=== PATIENT | male | born 1950 | race Caucasian/White ===

== ENCOUNTER 2020-06-22 06:10 | Outpatient (REF) | payer MEDICARE, BC, SELFPAY ==
[2020-06-22 07:41] LABS: Alanine Aminotransferase 18 U/L (0-40); Albumin Level 4.3 g/dL (3.5-5.0); Alkaline Phosphatase 53 U/L (39-117); Anion Gap 10 (12-20); Aspartate Amino Transferase 30 U/L (5-37); Bilirubin Total 1.6 mg/dL (0.0-1.0); Blood Urea Nitrogen 16 mg/dL (9-16); Calcium 9.2 mg/dL (8.4-10.2); Carbon Dioxide 30 mmol/L (22-29); Chloride 104 mmol/L (96-108); Cholesterol 120 mg/dL; Estimated Glomerular Filt Rate > 60; Glucose Fasting 101 mg/dL (60-99); HDL Cholesterol 63 mg/dL; LDL Cholesterol Calculated 46 mg/dl; Potassium 4.7 mmol/l (3.3-5.1); Sodium 139 mmol/L (135-145); Total Protein 6.5 g/dL (6.5-8.0); Triglycerides 55 mg/dL
[2020-06-22 08:00] LABS: Microalbumin Urine < 5.0 mg/L
[2020-06-22 08:01] LABS: TSH reflex Free T4 2.36 mIU/mL (0.32-4.0)
[2020-06-22 09:11] LABS: Estimated Average Glucose 114 mg/dL; Hemoglobin A1c % 5.6 %
== END 2020-06-22 06:11 | disposition home or self-care (01) ==
LOC: HO.LAB 06:10
PROVIDERS: PCP Family Medicine; Visit Provider Family Medicine
DX: I10 Essential (primary) hypertension (principal); R73.01 Impaired fasting glucose; Z00.00 Encounter for general adult medical examination without abnormal findings
CPT/HCPCS: 80053; 80061; 82043; 83036; 84443

== ENCOUNTER 2020-07-03 09:30 | Emergency (ER) | payer MEDICARE, BC, SELFPAY ==
[2020-07-03 09:39] VITALS: BP 155/57; PULSE 52; RESP 16; O2SAT 97; BMI 25.8
--- NOTE | 2020-07-03 10:06 | ED_ITS ---
HPI - Eye Problem General Chief complaint: Eye Problems Stated complaint: l eye flashes black dots Time Seen by Provider: 07/03/20 10:06 Source: patient Mode of arrival: ambulatory Limitations: no limitations History of Present Illness HPI Narrative: 70-year-old male presented after having flash light in the left visual field started since last night progressively worsening since last night to seeing a lot of flash lights in the left eye and floaters in the left eye. Patient had bilateral eye cataract surgery 2 weeks ago. Related Data Allergies Allergy/AdvReac Type Severity Reaction Status Date / Time No Known Allergies Allergy Unverified 06/02/20 14:40 [No Known Allergies*] Review of Systems Review of Systems: Yes all other systems are reviewed and are negative Eyes: Eyes: Reports blurry vision ( Left eye), Reports floaters ( left eye) and Reports seeing flashes ENT: Reports system reviewed and no additional complaints, except as documented [facility] Social History Social History Advance Directives: No Advance Directives Information Provided: No Physical Exam Vital Signs: Vital Signs: Vital Signs Pulse Resp BP Pulse Ox 07/03/20 09:39 52 16 155/57 H 97 Body Mass Index 25.8 Const: General: cooperative and healthy appearing Orientation/consciousness: oriented to person HENMT: Head: Yes normal to inspection Eyes: General: appearance normal, both eyes and all related structures Visual Perrin: normal visual perrin by confrontation Alignment and Position: alignment normal Periorbital: periorbital findings normal Eyelids: Yes eyelids normal Conjunctivae: conjunctivae normal Sclerae: sclerae normal Corneas: corneas normal Pupils: Equal, round and reactive pupils present, Pupils normal by confrontation, Pupil accommodation reflex normal and Other pupil findings ( left eye ultrasound at the bedside seeing no intra orbital flaps.) EOM: EOMs intact bilaterally Direct Ophthalmoscopy: other ( IOP in the left eye is 14 right eye 13) Neck: Neck: Yes normal visual inspection Chest: Chest palpation & inspection: normal inspection of the chest Resp: Effort & Inspection: normal respiratory effort Cardio: Jugular venous distension: no JVD GI: Palpation (GI): nontender Skin: General skin exam: no rashes or lesions noted Neuro: General: oriented to person Cranial nerves: Yes CN's II-XII intact bilaterally and Yes Equal, round and reactive pupils present Extrem: General: Yes normal to inspection and Yes full ROM Course Course Course Narrative: 70-year-old male history of recent bilateral eye cataract surgery, presented with left eye for seeing floaters and flashing lights which is concerning of retinal detachment especially patient had a history of right retinal tear on the right eye many years ago. Patient declined any head trauma to the eye. Will perform bedside ultrasound and will consult with Dr. Contreras. MDM - Eye Problem MDM Narrative Medical decision making narrative: Assessment and plan 70-year-old male with left eye light flashes and floaters, patient has a normal IOP, bedside ultrasound showed no obvious flap intra orbital E, the case discussed with Dr. Contreras over the phone recommended that patient to be seen in his office on Saturday. 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
== END 2020-07-03 10:26 | disposition home or self-care (01) ==
PROVIDERS: Emergency Provider Emergency Medicine; PCP Family Medicine
DX: H33.22 Serous retinal detachment, left eye (principal)
CPT/HCPCS: 99283

== ENCOUNTER 2020-10-03 08:38 | Day surgery (SDC) | payer MEDICARE, BC, SELFPAY ==
[2020-09-27 10:33] VITALS: BMI 26.2
--- NOTE | 2020-09-30 08:44 | P.CONAN_ITS ---
Documented by User: Kimberly Gaytan 09/30/20 08:46 HPI - Anesthesia Eval Consult details Narrative: 70yo M for Colonoscopy PMFSH Past Medical History Medical History Arthritis CAD (coronary artery disease) Diet-controlled type 2 diabetes mellitus Elevated cholesterol History of heartburn HTN (hypertension) Myocardial infarction Surgical History Surgical History History of bilateral cataract extraction History of breast lump/mass excision Hx of colonoscopy Hx of tonsillectomy Social History Social History Do you presently have visiting nurse or other home services: No Smoking Quit Date: years ago Use of substances other than those prescribed or required for medical reasons: No Have you been hit, kicked, punched, or otherwise hurt by someone within the past year? If so, by whom?: No Advance Directives: No Advance Directives Information Provided: No Advance Directives on File: No Recently lost weight without trying: No Narrative Narrative: Per cardiology office visit 02/2020 - pt asymptomatic with daily 4 mile walks at fast pace [employer] Allergies Allergy/AdvReac Type Severity Reaction Status Date / Time No Known Allergies Allergy Verified 10/03/20 09:04 [No Known Allergies*] Home Medications Medication Instructions Recorded Confirmed Type atorvastatin 40 mg tablet 40 mg PO DAILY 07/26/20 09/27/20 History flu vacc (64yr IM 07/26/20 History up)-MF59C(PF) 60 mcg(15 mcgx4)/0.5 mL IM syringe irbesartan 150 mg tablet 150 mg PO DAILY 07/26/20 10/03/20 History Exam Exam Date and Time: September 30, 2020 0844 Height,Weight and Vital Signs: Height 5 ft 10 in Weight 83.007 kg Narrative Narrative: EKG 02/2020: SB @ 43 Assessment and Plan Assessment Anesthesia Assessment: Chart Reviewed Documented by User: Shaw Ford 10/03/20 09:22 [facility] Past Medical History Medical History Arthritis CAD (coronary artery disease) Diet-controlled type 2 diabetes mellitus Elevated cholesterol History of heartburn HTN (hypertension) Myocardial infarction Surgical History Surgical History History of bilateral cataract extraction History of breast lump/mass excision Hx of colonoscopy Hx of tonsillectomy Social History Social History Do you presently have visiting nurse or other home services: No Smoking Quit Date: years ago Use of substances other than those prescribed or required for medical reasons: No Have you been hit, kicked, punched, or otherwise hurt by someone within the past year? If so, by whom?: No Advance Directives: No Advance Directives Information Provided: No Advance Directives on File: No Recently lost weight without trying: No Meds Allergies Allergy/AdvReac Type Severity Reaction Status Date / Time No Known Allergies Allergy Verified 10/03/20 09:04 [No Known Allergies*] Home Medications Medication Instructions Recorded Confirmed Type atorvastatin 40 mg tablet 40 mg PO DAILY 07/26/20 09/27/20 History flu vacc 2019-(64yr IM 07/26/20 History up)-MF59C(PF) 60 mcg(15 mcgx4)/0.5 mL IM syringe irbesartan 150 mg tablet 150 mg PO DAILY 07/26/20 10/03/20 History Exam Airway Mallampati Class: II TM Dist: >3cm Neck ROM: Full Loose/Missing/Broken Teeth: No Heart: rrr+[id number] Lungs: cta b/l Assessment and Plan Assessment Anesthesia Assessment: Anesthesia Plan Discussed, PAT Visit and Chart Reviewed Final Anesthetic Review NPO: Yes ASA Class: II Final Preanesthetic Review: No Changes in Pt Med Stat, Meds/Allgs Chart Reviewed, Consent Obtained/Reviewed and Anes Risks/Benef Reviewed Patient Risk: Low Procedure Risk: Low Assessment/Block/Sedation in SS: Assess/Block/Sedation-SS Anesthetic Plan Anesthetic Plan: MAC: and Agree w/ Assess. and Plan Disposition: Standard PACU
[2020-10-03 09:06] VITALS: BP 117/85; PULSE 74; RESP 16; TEMP 36.2; O2SAT 97
[2020-10-03] MEDS: Lactated Ringers 1,000 ML 100 ML IVCONT (09:11)
--- NOTE | 2020-10-03 10:28 | PM.OP ---
Brief Operative Note Date of Service: 10/03/20 Pre-op diagnosis: Screening, History of tubular adenomas Post-op diagnosis: other (Same, diverticulosis) Procedure: Colonoscopy to the cecum and TI Surgeon: Richie Romano Estimated blood loss (mL): 0 Pathology: none sent Condition: stable Disposition: PACU
[2020-10-03 10:29] VITALS: BP 103/62; PULSE 87; RESP 16; TEMP 36.8; O2SAT 97
[2020-10-03 10:44] VITALS: BP 107/71; PULSE 58; RESP 16; TEMP 36.8; O2SAT 97
--- NOTE | 2020-10-03 10:47 | OP_ITS ---
SURGEON: Richie Romano MD INDICATIONS: The patient presents for evaluation of colorectal cancer screening and personal history of tubular adenoma of the colon. Full consent was obtained from him for this, including risks of bleeding and perforation. PREOPERATIVE DIAGNOSIS: POSTOPERATIVE DIAGNOSIS: PROCEDURE PERFORMED: Colonoscopy to the cecum and terminal ileum. ESTIMATED BLOOD LOSS: COMPLICATIONS: ANESTHESIA: Monitored anesthesia care. ASSISTANTS: SPECIMENS: PREOPERATIVE DIAGNOSES: Colorectal cancer screening and personal history of tubular adenoma of the colon. POSTOPERATIVE DIAGNOSES: Colorectal cancer screening and personal history of tubular adenoma of the colon, mild sigmoid diverticulosis. DESCRIPTION OF PROCEDURE: The patient was placed in the left lateral decubitus position. The digital rectal exam revealed no abnormalities. The Olympus video pediatric colonoscope was entered into the rectum and advanced easily to the cecum. Once in the cecum I did identify normal-appearing cecal pouch, appendiceal orifice, and a normal-appearing ileocecal valve. The terminal ileum was cannulated and appeared normal. The scope was withdrawn back in the colon. The entire cecum and ileocecal valve appeared normal. The scope was slowly withdrawn assessing all mucosal surfaces carefully. Preparation was excellent. I did not visualize any sign of polyps, colitis, nor angiodysplasia. There was a mild amount of sigmoid diverticulosis. In the rectum, scope was retroflexed visualizing normal rectal mucosa and no pathology. The scope was straightened and withdrawn from the patient. He tolerated the procedure well and was returned to the recovery area in stable condition. IMPRESSION: Mild sigmoid diverticulosis. PLAN: Given today's negative exam but previous history of tubular adenoma, I would recommend a followup colonoscopy in 5 years for further screening. He was advised to resume his aspirin today. Richie Romano MD RMW/MODL / [id number]
--- NOTE | 2020-10-03 14:13 | HO.POSTANES ---
Post Anesthesia Evaluation Post Anesthesia Evaluation Vital Signs: Vital Signs Temp Pulse Resp BP Pulse Ox 10/03/20 10:44 98.2 F 58 16 107/71 97 10/03/20 10:29 98.2 F 87 16 103/62 97 10/03/20 09:06 97.1 F 74 16 117/85 97 Anesthesia: Monitored Mental Status: Awake Pain Control: Satisfactory Nausea/Vomiting: None Hydration: Adequate Anesthesia-Related Issues: No Anes. Related Issues
== END 2020-10-03 11:00 | disposition home or self-care (01) ==
PROVIDERS: PCP Family Medicine; Visit Provider Internal Medicine
PROC: 0DJD8ZZ Inspection of Lower Intestinal Tract, Via Natural or Artificial Opening Endoscopic (ICD-10-PCS; CPT 45378; principal; 2020-10-03 09:50)
DX: Z12.11 Encounter for screening for malignant neoplasm of colon (principal); Z86.010 Personal history of colon polyps; K57.30 Diverticulosis of large intestine without perforation or abscess without bleeding; E11.9 Type 2 diabetes mellitus without complications; I25.10 Atherosclerotic heart disease of native coronary artery without angina pectoris; Z95.5 Presence of coronary angioplasty implant and graft; I10 Essential (primary) hypertension; Z79.899 Other long term (current) drug therapy; Z79.82 Long term (current) use of aspirin; Z87.891 Personal history of nicotine dependence
CPT/HCPCS: G0105

== ENCOUNTER → 2021-03-09 09:10 | Outpatient (BNVA) | payer MEDICARE, BC, SELFPAY | PROVIDERS: PCP Family Medicine; Referring Provider Family Medicine; Visit Provider Internal Medicine Cardiovascular Disease | DX: R00.1 Bradycardia, unspecified (principal); I25.10 Atherosclerotic heart disease of native coronary artery without angina pectoris; I10 Essential (primary) hypertension; I21.9 Acute myocardial infarction, unspecified; E11.9 Type 2 diabetes mellitus without complications; E78.00 Pure hypercholesterolemia, unspecified | CPT/HCPCS: 93005; 99212 ==

== ENCOUNTER 2021-07-24 07:07 | Outpatient (REF) | payer MEDICARE, BC, SELFPAY ==
[2021-07-24 12:12] LABS: Alanine Aminotransferase 20 U/L (0-40); Albumin Level 4.2 g/dL (3.5-5.0); Alkaline Phosphatase 64 U/L (39-117); Anion Gap 9 (12-20); Aspartate Amino Transferase 29 U/L (5-37); Bilirubin Total 1.1 mg/dL (0.0-1.0); Blood Urea Nitrogen 21 mg/dL (9-16); Calcium 9.1 mg/dL (8.4-10.2); Carbon Dioxide 30 mmol/L (22-29); Chloride 109 mmol/L (96-108); Cholesterol 106 mg/dL; Estimated Glomerular Filt Rate > 60; Glucose Fasting 122 mg/dL (60-99); HDL Cholesterol 58 mg/dL; LDL Cholesterol Calculated 42 mg/dl; Sodium 143 mmol/L (135-145); Total Protein 6.6 g/dL (6.5-8.0); Triglycerides 33 mg/dL
[2021-07-24 13:05] LABS: Prostate Specific Antigen Scr 0.79 ng/mL (<0.05-4.0); TSH reflex Free T4 2.41 uIU/mL (0.32-4.0)
== END 2021-07-24 07:08 | disposition home or self-care (01) ==
LOC: HO.WFDLDS 07:07
PROVIDERS: Visit Provider Family Medicine
DX: Z00.00 Encounter for general adult medical examination without abnormal findings (principal); Z12.5 Encounter for screening for malignant neoplasm of prostate
CPT/HCPCS: 36415; 80053; 80061; 84153; 84443

== ENCOUNTER → 2022-03-12 08:54 | Outpatient (BNVA) | payer MEDICARE, BC, SELFPAY | PROVIDERS: PCP Family Medicine; Referring Provider Family Medicine; Visit Provider Internal Medicine Cardiovascular Disease | DX: I25.10 Atherosclerotic heart disease of native coronary artery without angina pectoris (principal); I10 Essential (primary) hypertension; R00.1 Bradycardia, unspecified | CPT/HCPCS: 93005; 99212 ==

== ENCOUNTER 2022-09-19 08:50 | Outpatient (REF) | payer MEDICARE, BC, SELFPAY ==
[2022-09-19 11:08] LABS: Alanine Aminotransferase 19 U/L (0-40); Albumin Level 4.3 g/dL (3.5-5.0); Alkaline Phosphatase 59 U/L (39-117); Anion Gap 8 (12-20); Aspartate Amino Transferase 27 U/L (5-37); Bilirubin Total 0.9 mg/dL (0.0-1.0); Blood Urea Nitrogen 23 mg/dL (9-16); Calcium 9.4 mg/dL (8.4-10.2); Carbon Dioxide 32 mmol/L (22-29); Chloride 106 mmol/L (96-108); Cholesterol 123 mg/dL; Estimated Glomerular Filt Rate > 60; Glucose Fasting 118 mg/dL (60-99); HDL Cholesterol 60 mg/dL; LDL Cholesterol Calculated 54 mg/dl; Potassium 4.2 mmol/L (3.3-5.1); Sodium 142 mmol/L (135-145); Total Protein 6.8 g/dL (6.5-8.0); Triglycerides 49 mg/dL
[2022-09-19 11:09] LABS: Appearance Urine Clear; Color Urine Yellow; Glucose Urine UA Negative (Negative); Leukocyte Esterase Urine Negative (Negative); Nitrite Urine Negative (Negative); Specific Gravity - Urine 1.025 (1.005-1.025); Urine Blood Negative (Negative); Urine Ketones Negative (Negative); Urine Protein Negative (Neg-Trace)
[2022-09-19 11:19] LABS: Prostate Specific Antigen Scr 0.96 ng/mL (<0.05-4.0); TSH reflex Free T4 2.37 uIU/mL (0.32-4.0)
[2022-09-19 11:52] LABS: Creatinine Urine 184.58 mg/dL; Microalbum/Creatinine Ratio Ur 5.9 ug/mg cr
== END 2022-09-19 08:51 | disposition home or self-care (01) ==
LOC: HO.WFDLDS 08:50
PROVIDERS: Visit Provider Family Medicine
DX: Z00.00 Encounter for general adult medical examination without abnormal findings (principal); Z12.5 Encounter for screening for malignant neoplasm of prostate; I10 Essential (primary) hypertension
CPT/HCPCS: 36415; 80053; 80061; 81003; 82043; 84153; 84443

== ENCOUNTER → 2023-03-14 09:00 | Outpatient (BNVA) | payer MEDICARE, BC, SELFPAY | PROVIDERS: PCP Family Medicine; Referring Provider Family Medicine; Visit Provider Internal Medicine Cardiovascular Disease | DX: I25.10 Atherosclerotic heart disease of native coronary artery without angina pectoris (principal); I49.1 Atrial premature depolarization | CPT/HCPCS: 93005; 99212 ==

== ENCOUNTER 2023-04-22 08:19 | Outpatient (AMB) | payer MEDICARE, BC, SELFPAY ==
[2023-04-22 08:26] VITALS: BP 98/52; PULSE 44; RESP 13; TEMP 36.2; O2SAT 99; BMI 24.0
--- NOTE | 2023-04-22 08:26 | MHC.PC.OV ---
Vital Signs 04/22/23 08:26 Height 5 ft 10 in Weight 167 lb BMI 24.0 BP 98/52 L Blood Pressure Location Rt brachial Position Sitting Respiration 13 Pulse 44 L Temp 97.1 F Temp Source Temporal Artery Scan Pulse Oximetry (%) 99 Oxygen Delivery Method Room Air Intake Visit Reasons: A1C, HTN (hypertension) Intake Note: Patient is here to follow up with A1C. Patient reports no concerns at this time. Green Material Value Added Assessor Required: No Allergies No Known Allergies [No Known Allergies*] Allergy (Verified 04/22/23 08:32) bee stings Allergy (Intermediate, Uncoded 12/18/22 09:56) swelling Tobacco use date assessed: 09/28/22 Fall risk assessment: 1 Fall in past year Last assessed Fall Risk: 04/22/23 Dental Screening Dental Screen Date: 04/22/23 Did you have a dental visit in the last 12 months?: No Did you have a dental problem in the last 6 months where you did not have access to dental care?: No Was dental information given to patient?: Patient has dentist HPI Hypertension (Cardio) Most Recent Cardiac Tests: No Data to Display [facility] Medical History Arthritis CAD (coronary artery disease) Diet-controlled type 2 diabetes mellitus Elevated cholesterol History of heartburn HTN (hypertension) Myocardial infarction Sinus bradycardia Surgical History History of bilateral cataract extraction History of breast lump/mass excision Hx of colonoscopy Hx of tonsillectomy Stented coronary artery Family History Father CAD (coronary artery disease) Myocardial infarction Diabetes mellitus Mother Diabetes mellitus COPD (chronic obstructive pulmonary disease) Brother Alcoholism Substance abuse Son No problems noted. Son Lyme disease Social History Housing: House Do you presently have visiting nurse or other home services: No Alcohol intake: current Alcohol intake frequency: holidays/special occasions only Patient Tobacco Use Status: Former Tobacco user Tobacco use type: Cigarette e-Cigarette/Vaping Use: Never Used Second Hand Smoke Exposure: No service: No Current occupational status: retired Current occupational exposures/hazards: No Cognitive needs: No Hearing needs: No Vision needs: No Questionnaire Thrive Questionnaire Date Thrive assessed: 09/28/22 GERRI-7 AMB Questionnaire GERRI-7 Date GERRI - 7 assessed: 09/28/22 Source: Developed by Drs. Richie Mead, Rizwana Sifuentes, Stanley Manrique and colleagues, with an educational jocelyn from [employer]. Physical exam (Primary Care) Vital Signs: Last Vital Signs Temp 97.1 F 04/22/23 08:26 Pulse 44 L 04/22/23 08:26 Resp 13 04/22/23 08:26 BP 98/52 L 04/22/23 08:26 Pulse Ox 99 04/22/23 08:26 Oxygen Delivery Method Room Air 04/22/23 08:26 BMI result Body Mass Index 24.0 Tobacco/Smoking Status: Tobacco use Status Tobacco use date assessed 09/28/22 04/22/23 08:33 Patient Tobacco Use Status Former Tobacco user 04/22/23 08:33 Tobacco use type Cigarette 04/22/23 08:33 e-Cigarette/Vaping Use Never Used 04/22/23 08:33 Thrive Assessment: Date of Thrive Assessment Date Thrive assessed 09/28/22 04/22/23 08:33 Results AMB Hemoglobin A1c AMB Hemoglobin A1c 5.9 % Last Edit by Tammi Nava on 04/22/23 08:49 Results Reviewed Results Reviewed: Laboratory Last Values Hgb A1c (Clinic) 5.9 % (4.0-6.0) 04/22/23 08:48 Assessment and Plan Assessment & Plan (1) HTN (hypertension): Code(s): I10 - Essential (primary) hypertension Plan: Blood pressure is a little low today but he has no symptoms such as fatigue or dizziness. Advised he increase his water intake in the mornings He is at goal of less than 130/80 for patient with coronary artery disease Continue current medication regimen (2) Pre-diabetes: Code(s): R73.03 - Prediabetes Plan: A1c 5.9% which is in pre diabetes range and has climbed little from his prior check He continues to work at a diet low in sugars and starches. Continue weight control and exercise Coding Level of Care Code Est Pt Level 3 (54398) Diagnoses HTN (hypertension) I10 Pre-diabetes R73.03
== END 2023-04-22 08:54 | disposition home or self-care (01) ==
PROVIDERS: Visit Provider Family Medicine
DX: I10 Essential (primary) hypertension (principal); R73.03 Prediabetes
CPT/HCPCS: 99213

== ENCOUNTER 2023-07-22 08:13 | Outpatient (AMB) | payer MEDICARE, BC, SELFPAY ==
[2023-07-22 08:29] VITALS: BP 120/64; PULSE 41; RESP 13; TEMP 37.1; O2SAT 99; BMI 25.0
--- NOTE | 2023-07-22 08:29 | MHC.PC.OV ---
Vital Signs 07/22/23 08:29 Height 5 ft 10 in Weight 174 lb BMI 25.0 BP 120/64 Blood Pressure Location Lt brachial Position Sitting Respiration 13 Pulse 41 L Pulse Source Pulse Oximeter Temp 98.7 F Temp Source Oral Pulse Oximetry (%) 99 Oxygen Delivery Method Room Air Intake Visit Reasons: f/u hypertension Intake Note: Patient is here for a hypertension follow up. Patient reports he has his A1C taken every 3 months, will await MD direction for todays visit. Computer Lab Assistant Required: No Accompanied by: Self / Same As Patient Allergies No Known Allergies [No Known Allergies*] Allergy (Verified 07/22/23 08:38) bee stings Allergy (Intermediate, Uncoded 07/22/23 08:38) swelling Tobacco use date assessed: 09/28/22 Fall risk assessment: 1 Fall in past year Last assessed Fall Risk: 07/22/23 Dental Screening Dental Screen Date: 07/22/23 Did you have a dental visit in the last 12 months?: Yes Did you have a dental problem in the last 6 months where you did not have access to dental care?: No Was dental information given to patient?: Patient has dentist HPI f/u hypertension HPI Details 73 y/o male presents to f/u hypertension and pre-diabetes. Blood pressure today 120/64. He is on irbesartan 150mg daily. Last A1c 5.9%. A1c today 07/22/23 is 5.7%. FOR[facility]LY [facility], [facility] Medical History Arthritis CAD (coronary artery disease) Diet-controlled type 2 diabetes mellitus Elevated cholesterol History of heartburn HTN (hypertension) Myocardial infarction Sinus bradycardia Surgical History History of bilateral cataract extraction History of breast lump/mass excision Hx of colonoscopy Hx of tonsillectomy Stented coronary artery Family History Father CAD (coronary artery disease) Myocardial infarction Diabetes mellitus Mother Diabetes mellitus COPD (chronic obstructive pulmonary disease) Brother Alcoholism Substance abuse Son No problems noted. Son Lyme disease Social History Housing: House Do you presently have visiting nurse or other home services: No Alcohol intake: current Alcohol intake frequency: holidays/special occasions only Patient Tobacco Use Status: Former Tobacco user Tobacco use type: Cigarette e-Cigarette/Vaping Use: Never Used Second Hand Smoke Exposure: No service: No Current occupational status: retired Current occupational exposures/hazards: No Cognitive needs: No Hearing needs: No Vision needs: No Questionnaire Thrive Questionnaire Date Thrive assessed: 09/28/22 GERRI-7 AMB Questionnaire GERRI-7 Date GERRI - 7 assessed: 09/28/22 Source: Developed by Drs. Richie Mead, Rizwana Sifuentes, Stanley Manrique and colleagues, with an educational jocelyn from [employer]. Review of Systems Const Denies chills, Denies fatigue, Denies fever(s), Denies headache(s) and Denies weakness ENT Denies dizziness and Denies headache(s) Card Denies dyspnea Resp Denies cough, Denies dyspnea, Denies wheezing and Denies other (shortness of breath) Musc Denies numbness and Denies tingling Neuro Denies dizziness, Denies headache(s), Denies numbness, Denies tingling and Denies weakness Psych Denies anxiety and Denies depression Endo Denies fatigue Aller/Immun Denies wheezing Physical exam (Primary Care) Vital Signs: Last Vital Signs Temp 98.7 F 07/22/23 08:29 Pulse 41 L 07/22/23 08:29 Resp 13 07/22/23 08:29 BP 120/64 07/22/23 08:29 Pulse Ox 99 07/22/23 08:29 Oxygen Delivery Method Room Air 07/22/23 08:29 BMI result Body Mass Index 25.0 Tobacco/Smoking Status: Tobacco use Status Tobacco use date assessed 09/28/22 07/22/23 08:30 Patient Tobacco Use Status Former Tobacco user 07/22/23 08:30 Tobacco use type Cigarette 07/22/23 08:30 e-Cigarette/Vaping Use Never Used 07/22/23 08:30 Thrive Assessment: Date of Thrive Assessment Date Thrive assessed 09/28/22 07/22/23 08:30 Const General: well developed; No acute distress Nutritional Appearance: well nourished Orientation/consciousness: patient oriented x3 HENMT Head: Yes normocephalic and Yes atraumatic Eyes General: appearance normal, both eyes and all related structures Pupils: Equal, round and reactive pupils present EOM: EOMs intact bilaterally Resp Effort & Inspection: normal respiratory effort Neuro General: patient oriented x3 and gait normal Cranial nerves: Yes Equal, round and reactive pupils present Psych Affect: normal affect Assessment and Plan Assessment & Plan (1) Essential hypertension: Code(s): I10 - Essential (primary) hypertension Plan: Blood?pressure?is?well?controlled.??Goal?is?less?than?130/80 Continue?current?medication?regimen Continue?exercise?and?salt/sodium?avoid (2) Pre-diabetes: Code(s): R73.03 - Prediabetes Plan: A1c?improved?from?5.9%?to?5.7%.??Low?pre?diabetes?range Continue?to?work?at?a?diet?low?in?sugars?and?starches Weight?control?and?exercise?advised?as?well (3) Sinus bradycardia: Code(s): R00.1 - Bradycardia, unspecified Plan: History?of?bradycardia.??No?dizziness?or?other?symptoms Has?had?workup?with?Cardiology. Orders: Orders Comprehensive Gardner. Panel Fast Today Z00.00 - Encounter for general adult medical examination without abnormal findings Complete Blood Count Auto Diff Today Z00.00 - Encounter for general adult medical examination without abnormal findings Microalbumin, Random (w Creat) Today I10 - Essential (primary) hypertension Prostate Specific Antigen Scr Today Z12.5 - Encounter for screening for malignant neoplasm of prostate Lipid Panel Today Z00.00 - Encounter for general adult medical examination without abnormal findings UA and rflx microscopic Today Z00.00 - Encounter for general adult medical examination without abnormal findings TSH reflex Free T4 Today Z00.00 - Encounter for general adult medical examination without abnormal findings Coding Level of Care Code Est Pt Level 3 (21037) Diagnoses Essential hypertension I10 Pre-diabetes R73.03 Sinus bradycardia R00.1
== END 2023-07-22 09:17 | disposition home or self-care (01) ==
PROVIDERS: PCP Family Medicine; Visit Provider Family Medicine
DX: I10 Essential (primary) hypertension (principal); R73.03 Prediabetes; R00.1 Bradycardia, unspecified; Z13.9 Encounter for screening, unspecified
CPT/HCPCS: 83036; 99213

== ENCOUNTER 2023-09-13 13:26 | Outpatient (AMB) | payer MEDICARE, BC, SELFPAY ==
[2023-09-13 13:35] VITALS: BP 150/84; PULSE 41; O2SAT 97; BMI 25.4
--- NOTE | 2023-09-13 13:35 | MHC.PC.OV ---
Vital Signs 09/13/23 13:35 09/13/23 13:51 Height 5 ft 10 in Weight 177 lb 2 oz BMI 25.4 BP 150/84 H 142/80 H Blood Pressure Location Lt brachial Lt brachial Position Sitting Pulse 41 L Pulse Source Pulse Oximeter Pulse Oximetry (%) 97 Oxygen Delivery Method Room Air Intake Visit Reasons: hypertension Intake Note: Patient is here to follow up on hypertension today. Allergies No Known Allergies [No Known Allergies*] Allergy (Verified 09/13/23 13:38) bee stings Allergy (Intermediate, Uncoded 09/13/23 13:38) swelling Tobacco use date assessed: 09/13/23 Fall risk assessment: 1 Fall in past year Last assessed Fall Risk: 09/13/23 HPI hypertension HPI Details 73 y/o male presents to f/u hypertension. Blood pressure today 150/84, 41p. He is on irbesartan 150mg daily. Pt notes he took his medications today. He denies any recent salty meals. REPLACED BY [facility] Medical History Arthritis CAD (coronary artery disease) Diet-controlled type 2 diabetes mellitus Elevated cholesterol History of heartburn HTN (hypertension) Myocardial infarction Sinus bradycardia Surgical History History of bilateral cataract extraction History of breast lump/mass excision Hx of colonoscopy Hx of tonsillectomy Stented coronary artery Family History Father CAD (coronary artery disease) Myocardial infarction Diabetes mellitus Mother Diabetes mellitus COPD (chronic obstructive pulmonary disease) Brother Alcoholism Substance abuse Son No problems noted. Son Lyme disease Social History Housing: House Do you presently have visiting nurse or other home services: No Alcohol intake: current Alcohol intake frequency: holidays/special occasions only Patient Tobacco Use Status: Former Tobacco user Tobacco use type: Cigarette e-Cigarette/Vaping Use: Never Used Second Hand Smoke Exposure: No service: No Current occupational status: retired Current occupational exposures/hazards: No Cognitive needs: No Hearing needs: No Vision needs: No Questionnaire Thrive Questionnaire Date Thrive assessed: 09/28/22 GERRI-7 AMB Questionnaire GERRI-7 Date GERRI - 7 assessed: 09/28/22 Source: Developed by Drs. Richie Mead, Rizwana Sifuentes, Stanley Manrique and colleagues, with an educational jocelyn from [employer]. Review of Systems Const Denies chills, Denies fatigue, Denies fever(s), Denies headache(s) and Denies weakness ENT Denies dizziness and Denies headache(s) Card Denies chest pain, Denies lightheadedness, Denies dyspnea and Denies other (Palpitations) Resp Denies cough, Denies dyspnea, Denies wheezing and Denies other ( shortness of breath) Musc Denies numbness and Denies tingling Neuro Denies dizziness, Denies headache(s), Denies numbness, Denies tingling, Denies paresthesias and Denies weakness Psych Denies anxiety and Denies depression Endo Denies fatigue Aller/Immun Denies wheezing Physical exam (Primary Care) Vital Signs: Last Vital Signs Pulse 41 L 09/13/23 13:35 BP 150/84 H 09/13/23 13:35 Pulse Ox 97 09/13/23 13:35 Oxygen Delivery Method Room Air 09/13/23 13:35 BMI result Body Mass Index 25.4 Tobacco/Smoking Status: Tobacco use Status Tobacco use date assessed 09/13/23 09/13/23 13:41 Patient Tobacco Use Status Former Tobacco user 09/13/23 13:41 Tobacco use type Cigarette 09/13/23 13:41 e-Cigarette/Vaping Use Never Used 09/13/23 13:41 Thrive Assessment: Date of Thrive Assessment Date Thrive assessed 09/28/22 09/13/23 13:41 Const General: no acute distress and well developed Nutritional Appearance: well nourished Orientation/consciousness: patient oriented x3 HENMT Head: Yes normocephalic and Yes atraumatic Eyes General: appearance normal, both eyes and all related structures Pupils: Equal, round and reactive pupils present EOM: EOMs intact bilaterally Resp Effort & Inspection: normal respiratory effort Auscultation: clear to auscultation bilaterally Cardio Rate: regular rate Rhythm: regular rhythm Heart sounds: S1 normal heart sound present, S2 normal heart sound present, no gallops, no murmurs and no rubs Neuro General: patient oriented x3 and gait normal Cranial nerves: Yes Equal, round and reactive pupils present Psych Affect: normal affect Assessment and Plan Assessment & Plan (1) Essential hypertension: Code(s): I10 - Essential (primary) hypertension Plan: Blood?pressure?is?too?high?for?patient?with?coronary?artery?disease.??Goal?is?less?than?130/80. He?has?noted?elevated?blood?pressures?at?home?as?well Continue?irbesartan.??Will?add?hydrochlorothiazide Will?follow-up?again?in?a?month (2) CAD (coronary artery disease): Comment: Sees Dr Callahan Code(s): I25.10 - Atherosclerotic heart disease of wiyot coronary artery without angina pectoris Plan: Stable (3) Sinus bradycardia: Code(s): R00.1 - Bradycardia, unspecified Plan: Stable Medications: New hydrochlorothiazide 25 mg PO QAM 30 tabs 1RF 30 days Coding Level of Care Code Est Pt Level 3 (02483) Diagnoses Essential hypertension I10 CAD (coronary artery disease) I25.10 Sinus bradycardia R00.1
[2023-09-13 13:51] VITALS: BP 142/80
== END 2023-09-13 14:02 | disposition home or self-care (01) ==
PROVIDERS: PCP Family Medicine; Visit Provider Family Medicine
DX: I10 Essential (primary) hypertension (principal); I25.10 Atherosclerotic heart disease of native coronary artery without angina pectoris; R00.1 Bradycardia, unspecified
CPT/HCPCS: 99213

== ENCOUNTER 2023-09-28 09:14 | Outpatient (AMB) | payer MEDICARE, BC, SELFPAY ==
--- NOTE | 2023-09-28 10:33 | AM.OFFWIN_ITS ---
Intake Vital Signs 09/28/23 10:34 Height 5 ft 10 in Weight 174 lb BMI 25.0 BP 112/70 Blood Pressure Location Lt brachial Position Sitting Pulse 58 Pulse Source Pulse Oximeter Pulse Oximetry (%) 98 Oxygen Delivery Method Room Air Intake Visit Reasons: EP fluid left eardrum hearing loss Intake Note: Patient here because he believes fluid has gathered up in the left ear which has been bothersome for about 3-4 days. Patient Tobacco Use Status: Former Tobacco user Allergies No Known Allergies [No Known Allergies*] Allergy (Verified 10/02/23 10:54) bee stings Allergy (Intermediate, Uncoded 10/02/23 10:54) swelling Do you need a note to return to daycare/school/sports/work: No HPI EP fluid left eardrum hearing loss HPI Details Patient is a 73-year-old male comes to the walk-in clinic complaining of left ear discomfort for the last few days. He had had a course of cold symptoms recently with slight nasal congestion prior to this. The pain radiates to his left jaw, and he has decreased hearing in the ear. He already has an ENT specialist as he does have a history of ear infections and he plans to call them Saturday. He denies headache or dizziness or vertigo, fever or chills, discharge from the ear, nausea vomiting or diarrhea, myalgias or malaise, or other significant associated symptoms. [facility] Medical History Sinus bradycardia Arthritis History of heartburn Elevated cholesterol CAD (coronary artery disease) Diet-controlled type 2 diabetes mellitus Myocardial infarction HTN (hypertension) Surgical History Stented coronary artery History of breast lump/mass excision Hx of tonsillectomy History of bilateral cataract extraction Hx of colonoscopy Family History Father CAD (coronary artery disease) Myocardial infarction Diabetes mellitus Mother Diabetes mellitus COPD (chronic obstructive pulmonary disease) Brother Alcoholism Substance abuse Son No problems noted. Son Lyme disease Social History Housing: House Do you presently have visiting nurse or other home services: No Alcohol intake: current Alcohol intake frequency: holidays/special occasions only Patient Tobacco Use Status: Former Tobacco user Tobacco use type: Cigarette e-Cigarette/Vaping Use: Never Used Second Hand Smoke Exposure: No service: No Current occupational status: retired Current occupational exposures/hazards: No Cognitive needs: No Hearing needs: No Vision needs: No Review of Systems Const All systems reviewed & are unremarkable except as noted in HPI and below Physical Exam Vital Signs: Last Vital Signs Pulse 58 09/28/23 10:34 BP 112/70 09/28/23 10:34 Pulse Ox 98 09/28/23 10:34 Oxygen Delivery Method Room Air 09/28/23 10:34 BMI result Body Mass Index 25.0 Const General: cooperative, comfortable, no acute distress, alert, awake, Physically active and well groomed; No anxious, diaphoretic, intoxicated appearing, poor hygiene or tired appearing Nutritional Appearance: average body habitus Limitations: no limitations HEENT Head: Yes normal to inspection, Yes normocephalic and Yes atraumatic Ears: hearing grossly normal bilaterally, external ears normal, TM normal on the right and TM abnormal (left) wth effusion, erythematous and with fluid behind the TM; not perforated General nose exam: Normal external nose present, Normal nares present, No nasal polyps present, Normal nasal mucous membranes and turbinates present, Normal septum present and No nasal discharge present Face and sinus: Yes normal facial exam, Yes sinuses nontender and Yes face symmetric Mouth: Normal oral and palatal mucosa present, lip normal and tongue normal Throat: Yes posterior oropharynx normal, No peritonsillar mass, No postnasal drainage, No uvular edema and No cobblestoning Eyes General: appearance normal, both eyes and all related structures Resp Effort & Inspection: normal respiratory effort Skin Other: Good color, warm and dry Psych Appearance: grossly normal Mental Status: mental status grossly normal Speech and movement: Normal speech and movement present Affect: normal affect Attitude: cooperative Thought process: Normal thought process present Insight: Good insight present (Psych) Judgement: Good judgement present (Psych) Assessment & Plan Assessment & Plan (1) Otitis media: Code(s): H66.90 - Otitis media, unspecified, unspecified ear Qualifiers: Chronicity: acute Laterality: left Otitis media type: suppurative Recurrence: non-recurrent Spontaneous tympanic membrane rupture: without spontaneous rupture Qualified Code(s): H66.002 - Acute suppurative otitis media without spontaneous rupture of ear drum, left ear Plan: Patient is a 73-year-old male with acute left otitis media after apparent viral upper respiratory infection. He complains of left ear discomfort that radiates to his left jaw, and decreased hearing in the ear. He already sees ENT, and so I told him that if symptoms do not improve with a course of Augmentin that I prescribed, he should follow up with them next week as planned. Medications: New amoxicillin-pot clavulanate 875-125 mg 1 tab PO BID 14 tabs 0RF Coding Level of Care Code Est Pt Level 3 (29024) Diagnoses Non-recurrent acute suppurative otitis media of left ear without spontaneous rupture of tympanic membrane H66.002 Chronicity: acute Laterality: left Otitis media type: suppurative Recurrence: non-recurrent Spontaneous tympanic membrane rupture: without spontaneous rupture
[2023-09-28 10:34] VITALS: BP 112/70; PULSE 58; O2SAT 98; BMI 25.0
== END 2023-09-28 11:28 | disposition home or self-care (01) ==
PROVIDERS: PCP Family Medicine; Visit Provider Physician Assistant Medical
DX: H66.002 Acute suppurative otitis media without spontaneous rupture of ear drum, left ear (principal)
CPT/HCPCS: 99213

== ENCOUNTER 2023-10-02 10:49 | Outpatient (AMB) | payer MEDICARE, BC, SELFPAY ==
[2023-10-02 10:52] VITALS: BP 120/70; PULSE 52; O2SAT 96; BMI 25.1
--- NOTE | 2023-10-02 10:52 | A.OFFPC_ITS ---
Vital Signs 10/02/23 10:52 Height 5 ft 10 in Weight 175 lb 4 oz BMI 25.1 BP 120/70 Blood Pressure Location Lt brachial Position Sitting Pulse 52 Pulse Source Pulse Oximeter Pulse Oximetry (%) 96 Oxygen Delivery Method Room Air Intake Visit Reasons: crackling in left ear post RSV Intake Note: Patient is is here with crackling in left ear, and was treated with Amoxicillin by Rosetta Morales in the walk in. Still not feeling better, still has pain, and it feels better. Allergies No Known Allergies [No Known Allergies*] Allergy (Verified 10/02/23 10:54) bee stings Allergy (Intermediate, Uncoded 10/02/23 10:54) swelling Tobacco use date assessed: 10/02/23 Fall risk assessment: 1 Fall in past year Last assessed Fall Risk: 10/02/23 HPI crackling in left ear post RSV HPI Details 73 y/o male presents today with complain ts of crackling in L ear post RSV. Pt reports he had been treated with amoxicillin in the walk-in for L otitis media but is still feeling pain/discomfort. Pt does note decreased pain. Blood pressure today 120/70. He is on hydrochlorothiazide 25mg. He is taking irbesartan 75mg daily. [facility] Medical History Sinus bradycardia Arthritis History of heartburn Elevated cholesterol CAD (coronary artery disease) Diet-controlled type 2 diabetes mellitus Myocardial infarction HTN (hypertension) Surgical History Stented coronary artery History of breast lump/mass excision Hx of tonsillectomy History of bilateral cataract extraction Hx of colonoscopy Family History Father CAD (coronary artery disease) Myocardial infarction Diabetes mellitus Mother Diabetes mellitus COPD (chronic obstructive pulmonary disease) Brother Alcoholism Substance abuse Son No problems noted. Son Lyme disease Social History Housing: House Do you presently have visiting nurse or other home services: No Alcohol intake: current Alcohol intake frequency: holidays/special occasions o nly Patient Tobacco Use Status: Former Tobacco user Tobacco use type: Cigarette e-Cigarette/Vaping Use: Never Used Second Hand Smoke Exposure: No service: No Current occupational status: retired Current occupational exposures/hazards: No Cognitive needs: No Hearing needs: No Vision needs: No Questionnaire Thrive Questionnaire Date Thrive assessed: 09/28/22 GERRI-7 AMB Questionnaire GERRI-7 Date GERRI - 7 assessed: 09/28/22 Source: Developed by Drs. Richie Mead, Rizwana Sifuentes, Stanley Manrique and colleagues, with an educational jocelyn from [employer]. Review of Systems Const Denies chills, Denies fatigue, Denies fever(s), Denies headache(s) and Denies weakness ENT Details: L ear pain Denies dizziness and Denies headache(s) Card Denies dyspnea Resp Denies cough, Denies dyspnea, Denies wheezing and Denies other (shortness of breath) Musc Denies numbness and Denies tingling Neuro Denies dizziness, Denies headache(s), Denies numbness, Denies tingling and Denies weakness Psych Denies anxiety and Denies depression Endo Denies fatigue Aller/Immun Denies wheezing Physical exam (Primary Care) Vital Signs: Last Vital Signs Pulse 52 10/02/23 10:52 BP 120/70 10/02/23 10:52 Pulse Ox 96 10/02/23 10:52 Oxygen Delivery Method Room Air 10/02/23 10:52 BMI result Body Mass Index 25.1 Tobacco/Smoking Status: Tobacco use Status Tobacco use date assessed 10/02/23 10/02/23 10:55 Patient Tobacco Use Status Former Tobacco user 10/02/23 10:55 Tobacco use type Cigarette 10/02/23 10:55 e-Cigarette/Vaping Use Never Used 10/02/23 10:55 Thrive Assessment: Date of Thrive Assessment Date Thrive assessed 09/28/22 10/02/23 10:55 Const General: well developed; No acute distress Nutritional Appearance: well nourished Orientation/consciousness: patient oriented x3 HENMT Head: Yes normocephalic and Yes atraumatic Eyes General: appearance normal, both eyes and all related structures Pupils: Equal, round and reactive pupils present EOM: EOMs intact bilaterally Resp Effort & Inspection: normal respiratory effort Neuro General: patient oriented x3 and gait normal Cranial nerves: Yes Equal, round and reactive pupils present Psych Affect: normal affect Assessment and Plan Assessment & Plan (1) Left otitis media: Code(s): H66.92 - Otitis media, unspecified, left ear Plan: Ongoing?left?otitis?media. Pain?is?improving.??Will?extend?Augmentin?x5?more?days Refer?him?back?to?ENT?as ?he?has?significant?hearing?loss?already?and?relies?mostly?on?his?left?ear?for?h earing?which?is?currently?significantly?impaired?from?baseline Continue?Flonase?for?improved?drainage Warm?compresses (2) Discomfort of left ear: Code(s): H92.02 - Otalgia, left ear Plan: As?above,?warm?compresses (3) Essential hypertension: Code(s): I10 - Essential (primary) hypertension Plan: Blo od?pressure?significantly?improved?since?adding?hydrochlorothiazide.??He?is?taki ng?12.5?mg?of?hydrochlorothiazide?daily?as?well?as?his?prescribed?dose?of?irbesa rtan Will?adjust?hydrochlorothiazide?dose?in?his?med?list Orders: Referrals Ear/Nose/Throat Referral H91.90 - Unspecified hearing loss, unspecified ear, H92.02 - Otalgia, left ear Medications: Changed From hydrochlorothiazide 25 mg PO QAM 30 days 30 tabs 1RF To hydrochlorothiazide 12.5 mg (1/2 x 25 mg) PO QAM 30 days 15 tabs 1RF From amoxicillin-pot clavulanate 875-125 mg 1 tab PO BID 14 tabs 0RF To amoxicillin-pot clavulanate 875-125 mg 1 tab PO BID 10 tabs 0RF 5 days Coding Level of Care Code Est Pt Level 3 (83240) Diagnoses Left otitis media H66.92 Discomfort of left ear H92.02 Essential hypertension I10
== END 2023-10-02 11:14 | disposition home or self-care (01) ==
PROVIDERS: PCP Family Medicine; Visit Provider Family Medicine
DX: H66.92 Otitis media, unspecified, left ear (principal); H92.02 Otalgia, left ear; I10 Essential (primary) hypertension
CPT/HCPCS: 99213

== ENCOUNTER 2023-11-28 07:31 | Outpatient (REF) | payer MEDICARE, BC, SELFPAY ==
[2023-11-28 10:56] LABS: MANUAL DIFF FLAG NO
[2023-11-28 11:00] LABS: Appearance Urine Clear; Basophils Percent Auto 0.3 % (0-2); Color Urine Yellow; Eosinophils Absolute Auto 0.1 X10*3/uL (0.0-0.4); Eosinophils Percent Auto 2.4 % (0-4); Glucose Urine UA Negative (Negative); Hematocrit 41.5 % (42.0-52.0); Hemoglobin 14.3 g/dl (14.0-18.0); Imm Gran Abs Auto 0.01 X10*3/uL (0.00-0.03); Imm Gran Pct Auto 0.2 % (0.0-0.4); Leukocyte Esterase Urine Negative (Negative); Lymphocytes Absolute Auto 2.1 X10*3/uL (1.2-4.9); Lymphocytes Percent Auto 36.5 % (20-40); Mean Corpuscular HGB Conc 34.5 g/dl (31.0-36.0); Mean Corpuscular Hemoglobin 31.5 pg (27.0-33.0); Mean Corpuscular Volume 91.4 fL (80.0-98.0); Mean Platelet Volume 10.7 fL (9.4-12.4); Monocytes Absolute Auto 0.5 X10*3/uL (0.1-1.2); Monocytes Percent Auto 9.2 % (2-11); Neutrophils Percent Auto 51.4 % (45-73); Nitrite Urine Negative (Negative); PH 5.5 (5.0-9.0); Platelet Count 150 X10*3/uL (160-400); Red Blood Count 4.54 X10*6/uL (4.60-5.80); Red Cell Distribution Width 13.1 % (11.0-16.0); Specific Gravity - Urine <= 1.005 (1.005-1.025); Urine Blood Negative (Negative); Urine Ketones Negative (Negative); Urine Protein Negative (Neg-Trace); White Blood Count 5.8 X10*3/uL (4.8-10.8)
[2023-11-28 11:40] LABS: Alanine Aminotransferase 22 U/L (0-40); Albumin Level 4.1 g/dL (3.5-5.0); Alkaline Phosphatase 69 U/L (39-117); Anion Gap 10 (12-20); Aspartate Amino Transferase 44 U/L (5-37); Bilirubin Total 1.3 mg/dL (0.0-1.0); Blood Urea Nitrogen 19 mg/dL (9-16); Calcium 9.1 mg/dL (8.4-10.2); Carbon Dioxide 31 mmol/L (22-29); Chloride 101 mmol/L (96-108); Cholesterol 110 mg/dL (<200); Estimated Glomerular Filt Rate > 60; Glucose Fasting 121 mg/dL (60-99); HDL Cholesterol 65 mg/dL (>40); LDL Cholesterol Calculated 39 mg/dL (<100); Sodium 138 mmol/L (135-145); Total Protein 6.8 g/dL (6.5-8.0); Triglycerides 31 mg/dL (<150)
[2023-11-28 11:44] LABS: TSH reflex Free T4 2.15 uIU/mL (0.32-4.0)
[2023-11-28 11:46] LABS: Prostate Specific Antigen Scr 1.45 ng/mL (<0.05-4.0)
[2023-11-28 11:53] LABS: Creatinine Urine 26.18 mg/dL; Microalbumin Urine < 5.0 mg/L
== END 2023-11-28 07:32 | disposition home or self-care (01) ==
LOC: HO.10HDL 07:31
PROVIDERS: Visit Provider Family Medicine
DX: Z00.00 Encounter for general adult medical examination without abnormal findings (principal); Z12.5 Encounter for screening for malignant neoplasm of prostate; I10 Essential (primary) hypertension
CPT/HCPCS: 36415; 80053; 80061; 81003; 82043; 82570; 84153; 84443; 85025

== ENCOUNTER 2023-12-02 08:44 | Outpatient (AMB) | payer MEDICARE, BC, SELFPAY ==
--- NOTE | 2023-12-02 09:09 | MHC.PC.OV ---
Vital Signs 12/02/23 09:10 Height 5 ft 10 in Weight 180 lb BMI 25.8 BP 122/60 Blood Pressure Location Lt brachial Position Sitting Respiration 12 Pulse 46 L Pulse Source Pulse Oximeter Pulse Oximetry (%) 98 Oxygen Delivery Method Room Air Intake Visit Reasons: Extended examf/u labs health maintenance Intake Note: Patient is here for his physical and reports he has no concerns. Patient reports he has hearing aids bilaterally. Patient reports he has been cutting the amlodipine in half. 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 Labs were drawn 11/28/23. Reviewed labs with pt. RBC/Hct mildly low at 4.54 and 41.5%. Plt count mildly low at 150. Elevated fasting glucose of 121, hx of pre-diabetes. A1c today 12/02/23 is 6.1%. AST elevated 44 U/L. Triglycerides 31. TC 110. LDL 39. HDL 65. Blood pressure today 122/60, 46p. He notes he has been breaking his amlodipine in half as he had recorded low blood pressures at home. Pt notes he walks for exercise and keeps himself active. He states he had a colonoscopy a couple years ago with Dr. Romano and had wanted to see him back in 10 years. [facility] Medical History Sinus bradycardia Arthritis History of heartburn Elevated cholesterol CAD (coronary artery disease) Diet-controlled type 2 diabetes mellitus Myocardial infarction HTN (hypertension) Surgical History Stented coronary artery History of breast lump/mass excision Hx of tonsillectomy History of bilateral cataract extraction Hx of colonoscopy Family History Father CAD (coronary artery disease) Myocardial infarction Diabetes mellitus Mother Diabetes mellitus COPD (chronic obstructive pulmonary disease) Brother Alcoholism Substance abuse Son No problems noted. Son Lyme disease Social History (Updated 12/02/23 @ 09:22 by Tammi Nava CMA) Household Members: Spouse Both parents involved: No Caregiver staying overnight: No Housing: House Are you a primary date night caregiver to a significant other at home: No Do you presently have visiting nurse or other home services: No 75 years or older and lives alone: No Alcohol intake: current Alcohol intake frequency: holidays/special occasions only Alcohol type: beer Patient Tobacco Use Status: Former Tobacco user Tobacco use type: Cigarette e-Cigarette/Vaping Use: Never Used Second Hand Smoke Exposure: No service: No Current occupational status: retired Current occupational exposures/hazards: No Sexual orientation: Straight/Heterosexual Gender identity: Male Cognitive needs: No Hearing needs: No Vision needs: No Questionnaire PHQ-9 Over the last 2 weeks, how often have you been bothered by any of the following problems? 1. Little interest or pleasure in doing things: not at all 2. Feeling down, depressed, or hopeless: not at all 3. Trouble falling or staying asleep, or sleeping too much: not at all 4. Feeling tired or having little energy: not at all 5. Poor appetite or overeating: not at all 6. Feeling bad about yourself - or that you are a failure or have let yourself or your family down: not at all 7. Trouble concentrating on things, such as reading the newspaper or watching television: not at all 8. Moving or speaking so slowly that other people could have noticed. Or the opposite - being so fidgety or restless that you have been moving around a lot more than usual: not at all 9. Thoughts that you would be better off or of hurting yourself in some way: not at all Total score: 0 Depression Screening Interpretation: Negative Depression Screening Done: Yes 43757 - PHQ-9 Billing: Yes Source: Developed by Drs. Richie Mead, Rizwana Sifuentes, Stanley Manrique and colleagues, with an educational jocelyn from [employer]. Thrive Questionnaire Date Thrive assessed: 12/02/23 I am a: Patient What is your living situation today?: I have a steady place to live Within the past 12 months, did the food you bought not last and you didn't have the money to get more?: Never true Within the past 12 months, did you worry whether your food would run out before you got money to buy more?: Never true Do you have trouble paying for medicines?: No Do you have trouble getting transportation to medical appointments?: No Do you have trouble paying your heating and electricity bill?: No Do you have trouble taking care of your child, family member or friend?: No Do you have trouble with day-to-day activities such as bathing, preparing meals, shopping, managing finances, etc.?: No Are you currently unemployed and looking for a job?: No Are you interested in more education?: No Please select the resources that you would like help with: None Currently or been in a relationship where the following occur: no concerns reported THRIVE Score: 0 AUDIT C Alcohol Use Questionnaire (AUDIT-C) 1. How often do you have a drink containing alcohol?: Monthly or less 2. How many drinks containing alcohol do you have on a typical day when you are drinking?: 1 or 2 3. How often do you have six or more drinks on one occasion?: Never Total Score: 1 Score Reviewed/Action Taken: Yes GERRI-7 AMB Questionnaire GERRI-7 Date GERRI - 7 assessed: 12/02/23 Feeling nervous, anxious, or on edge: 0 = Not at all Not being able to stop or control worryin = Not at all Worrying too much about different things: 0 = Not at all Trouble relaxin = Not at all Being so restless that it is hard to sit still: 0 = Not at all Becoming easily annoyed or irritable: 0 = Not at all Feeling afraid as if something awful might happen: 0 = Not at all Total GERRI-7 score (0-4 normal; 5-9 mild; 10-14 moderate; 15-21 severe): 0 Source: Developed by Drs. Richie Mead, Rizwana Sifuentes, Stanley Manrique and colleagues, with an educational jocelyn from [employer]. GERRI-7 Assessment Billing GERRI-7 Assessment Tool: GERRI-7 Assessment 86144 Review of Systems Const Denies chills, Denies fatigue, Denies fever(s), Denies headache(s) and Denies weakness Eyes Denies change in vision ENT Denies dizziness, Denies headache(s), Denies hearing loss, Denies nasal congestion, Denies sinus pain, Denies sinus pressure and Denies sore throat Card Denies chest pain, Denies lightheadedness, Denies dyspnea and Denies other (palpitations) Resp Denies cough, Denies dyspnea and Denies wheezing GI Denies abdominal pain, Denies melena, Denies hematochezia, Denies change in bowel habits, Denies dyspepsia and Denies nausea Denies hematuria and Denies dysuria Musc Denies abnormal gait, Denies myalgias, Denies arthralgias, Denies numbness and Denies tingling Skin/Breast Denies rash, Denies unusual bruising and Denies wounds Neuro Denies abnormal gait, Denies dizziness, Denies headache(s), Denies memory loss, Denies numbness, Denies Sensory deficit (Neuro), Denies tingling and Denies weakness Psych Denies anxiety, Denies depression and Denies memory loss Endo Denies cold intolerance, Denies fatigue, Denies heat intolerance, Denies polydipsia and Denies polyuria Wale/Lymph Denies easy bleeding and Denies easy bruising Aller/Immun Denies wheezing Physical exam (Primary Care) Vital Signs: Last Vital Signs Pulse 46 L 12/02/23 09:10 Resp 12 12/02/23 09:10 BP 122/60 12/02/23 09:10 Pulse Ox 98 12/02/23 09:10 Oxygen Delivery Method Room Air 12/02/23 09:10 BMI result Body Mass Index 25.8 Tobacco/Smoking Status: Tobacco use Status Tobacco use date assessed 10/02/23 12/02/23 09:16 Patient Tobacco Use Status Former Tobacco user 12/02/23 09:22 Tobacco use type Cigarette 12/02/23 09:22 e-Cigarette/Vaping Use Never Used 12/02/23 09:22 PHQ-9: PHQ-9 Score PHQ-9: Total score 0 12/02/23 09:26 Depression Screening Interpretation: Negative Thrive Assessment: Date of Thrive Assessment Date Thrive assessed 12/02/23 12/02/23 09:26 Currently or been in a relationship where the following occur: no concerns reported Const General: no acute distress, well developed, alert and awake Nutritional Appearance: well nourished Orientation/consciousness: patient oriented x3 HENMT Head: Yes normocephalic and Yes atraumatic Ears: hearing grossly normal bilaterally and TM's normal bilaterally General nose exam: Normal external nose present and Normal nares present Mouth: Normal oral and palatal mucosa present and moist mucous membranes Teeth and gingiva: dentition normal Throat: Yes posterior oropharynx normal Eyes General: appearance normal, both eyes and all related structures Pupils: Equal, round and reactive pupils present and Pupil accommodation reflex normal EOM: EOMs intact bilaterally Neck Neck: Yes normal visual inspection, Yes no lymphadenopathy and Yes trachea midline Thyroid: Thyroid normal Carotids: no bruits Lymphatic: no lymphadenopathy noted Chest Chest palpation & inspection: normal inspection of the chest Resp Effort & Inspection: normal respiratory effort Auscultation: clear to auscultation bilaterally Cardio Rate: regular rate Rhythm: regular rhythm Heart sounds: S1 normal heart sound present, S2 normal heart sound present, no gallops, no murmurs and no rubs Bruits: no abdominal aortic bruits and no carotid bruits GI Palpation (GI): No Abdominal aortic bruit present, Soft to palpation, nontender, No hepatosplenomegaly present and No Rebound tenderness present Auscultation: normal bowel sounds General: Yes no CVA tenderness Back/Spine/Pelvis Back: no CVA tenderness Cervical Spine: cervical ROM normal and No Cervical spine tenderness Thoracic/Lumbar Spine: thoraco-lumbar ROM normal, No pain with thoraco-lumbar ROM, No thoracic spinal tenderness and No lumbar spinal tenderness Skin Lesions: no lesions Rashes: no rashes Trauma: no lacerations or abrasions Wounds: no wounds Nails: normal Neuro General: patient oriented x3 Cranial nerves: Yes Equal, round and reactive pupils present Cognition (Neuro): normal cognition Gait exam (Neuro): Normal gait present Motor exam (neuro): 5/5 motor strength present throughout Sensory Exam: No Sensory deficit (Neuro) Deep tendon reflexes (DTR's): Right patellar reflex intensity grade: 2+ and Left patellar reflex intensity grade: 2+ Extrem General: Yes normal to inspection and No edema Psych Appearance: grossly normal Affect: normal affect Attitude: cooperative Thought process: Normal thought process present Results AMB Hemoglobin A1c AMB Hemoglobin A1c 6.1 % Last Edit by Tammi Nava CMA on 12/02/23 09:32 Results Reviewed Results Reviewed: Laboratory Last Values Hgb A1c (Clinic) 6.1 % (4.0-6.0) H 12/02/23 09:27 Assessment and Plan Assessment & Plan (1) Hyperlipidemia: Code(s): E78.5 - Hyperlipidemia, unspecified Plan: Well?controlled. Continue?atorvastatin (2) Borderline anemia: Code(s): D64.9 - Anemia, unspecified Plan: Very?slightly?low?hematocrit Will?recheck?this?with?next?blood?draw (3) Essential hypertension: Code(s): I10 - Essential (primary) hypertension Plan: Blood?pressure?is?controlled.??Goal?is?less?than?130/80 Continue?current?medication?regimen (4) CAD (coronary artery disease): Comment: Sees Dr Callahan Code(s): I25.10 - Atherosclerotic heart disease of [place] coronary artery without angina pectoris Plan: Stable Has?follow-up?appointment?with??Jun?in?February (5) Pre-diabetes: Code(s): R73.03 - Prediabetes Plan: A1c?has?climbed?from?5.7-6.1% He?notes?that?he?has?gained?weight?and?was?just?on?a?cruise Encouraged?diet?exercise?and?weight?loss (6) Elevated AST (SGOT): Code(s): R74.01 - Elevation of levels of liver transaminase levels Plan: Mildly?elevated?AST?likely?concurrent?with?his?weight?gain Encouraged?weight?loss Will?repeat?prior?to?next?visit (7) Screening for colon cancer: Code(s): Z12.11 - Encounter for screening for malignant neoplasm of colon Plan: Followed?by? Patient?says?he?had?a?colonoscopy?a?couple?of?years?ago?was?told?to?follow-up?in?10?years.??Will?request?report (8) Screening for prostate cancer: Code(s): Z12.5 - Encounter for screening for malignant neoplasm of prostate Plan: PSA?is?within?normal?limits Will?continue?annual?screening (9) Annual physical exam: Code(s): Z00.00 - Encounter for general adult medical examination without abnormal findings Plan: 73-year-old?male?presents?for?an?extended?exam Encouraged?healthy?diet?with?active?lifestyle?and?plenty?of?exercise Orders: Orders AMB Hemoglobin A1c Today E11.9 - Type 2 diabetes mellitus without complications Complete Blood Count Auto Diff Today D64.9 - Anemia, unspecified, Z00.00 - Encounter for general adult medical examination without abnormal findings Comprehensive [place]. Panel Fast Today R74.01 - Elevation of levels of liver transaminase levels, Z00.00 - Encounter for general adult medical examination without abnormal findings Hemoglobin A1c Today R73.01 - Impaired fasting glucose, R73.03 - Prediabetes Coding Level of Care Code Est Pt Level 4 (07889) Diagnoses Hyperlipidemia E78.5 Borderline anemia D64.9 Essential hypertension I10 CAD (coronary artery disease) I25.10 Pre-diabetes R73.03 Elevated AST (SGOT) R74.01 Screening for colon cancer Z12.11 Screening for prostate cancer Z12.5 Annual physical exam Z00.00 Additional Codes GERRI-7 Assessment Billing - GERRI-7 Assessment Tool: GERRI-7 Assessment [id number] ([id number])
[2023-12-02 09:10] VITALS: BP 122/60; PULSE 46; RESP 12; O2SAT 98; BMI 25.8
== END 2023-12-02 09:53 | disposition home or self-care (01) ==
PROVIDERS: PCP Family Medicine; Visit Provider Family Medicine
DX: E78.5 Hyperlipidemia, unspecified (principal); D64.9 Anemia, unspecified; I10 Essential (primary) hypertension; I25.10 Atherosclerotic heart disease of native coronary artery without angina pectoris; R73.03 Prediabetes; R74.01 Elevation of levels of liver transaminase levels; Z12.11 Encounter for screening for malignant neoplasm of colon; Z12.5 Encounter for screening for malignant neoplasm of prostate; Z00.00 Encounter for general adult medical examination without abnormal findings; E11.9 Type 2 diabetes mellitus without complications
CPT/HCPCS: 83036; 99214

== ENCOUNTER 2024-03-02 08:12 | Outpatient (AMB) | payer MEDICARE, BC, SELFPAY ==
[2024-03-02 08:30] VITALS: BP 122/70; PULSE 43; RESP 14; TEMP 36.5; O2SAT 99; BMI 26.0
--- NOTE | 2024-03-02 08:30 | A.OFFPC_ITS ---
Vital Signs 03/02/24 08:30 Height 5 ft 10 in Weight 181 lb BMI 26.0 BP 122/70 Blood Pressure Location Rt brachial Position Sitting Respiration 14 Pulse 43 L Pulse Source Pulse Oximeter Temp 97.7 F Temp Source Temporal Artery Scan Pulse Oximetry (%) 99 Oxygen Delivery Method Room Air Intake Visit Reasons: f/u hypertension, labs Steel Layout Worker Required: No Accompanied by: Self / Same As Patient Allergies No Known Allergies [No Known Allergies*] Allergy (Verified 03/02/24 08:38) bee stings Allergy (Intermediate, Uncoded 12/02/23 09:14) swelling Medication List - Last Reconciled 03/02/24 by Amado Carrillo MD aspirin (Adult Aspirin Regimen) 81 mg PO DAILY atorvastatin 40 mg PO DAILY epinephrine (EpiPen 2-Bandar) 0.3 mg (0.3 mL) IM Q10M PRN ezetimibe 10 mg PO DAILY fluticasone propionate 50 mcg/actuation (Flonase Allergy Relief) 1 spray intranasal Q12H 30 days hydrochlorothiazide 12.5 mg (1/2 x 25 mg) PO QAM 90 days irbesartan 150 mg PO DAILY 90 days omeprazole 20 mg PO DAILY 90 days sildenafil 100 mg PO DAILY PRN 30 days Tobacco use date assessed: 10/02/23 Fall risk assessment: No Falls in past year Last assessed Fall Risk: 03/02/24 Dental Screening Dental Screen Date: 03/02/24 Did you have a dental visit in the last 12 months?: Yes Did you have a dental problem in the last 6 months where you did not have access to dental care?: No Was dental information given to patient?: Patient has dentist HPI f/u hypertension, labs HPI Details 73 y/o male presents to f/u hypertension , pre-diabetes. A1c climbed to 5.7% to 6.1%. Blood pressure today 122/70. He is on hydrochlorothiazide 12.5mg, irbesartan 150mg daily. Hx of CAD. 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 HPI Comments History of Present Illness Details Documentation assistance for Amado Carrillo MD, was provided by Evelio Kelly,? Cooler Worker on 03/02/2024 at 8:48 AM EST. I, Dr. Carrillo, have read, observed, and verified documentation. [facility] Medical History Sinus bradycardia Arthritis History of heartburn Elevated cholesterol CAD (coronary artery disease) Diet-controlled type 2 diabetes mellitus Myocardial infarction HTN (hypertension) Surgical History Stented coronary artery History of breast lump/mass excision Hx of tonsillectomy History of bilateral cataract extraction Hx of colonoscopy Family History Father CAD (coronary artery disease) Myocardial infarction Diabetes mellitus Mother Diabetes mellitus COPD (chronic obstructive pulmonary disease) Brother Alcoholism Substance abuse Son No problems noted. Son Lyme disease Social History Household Members: Spouse Both parents involved: No Caregiver staying overnight: No Housing: House Are you a primary customer care team coach to a significant other at home: No Do you presently have visiting nurse or other home services: No 75 years or older and lives alone: No Alcohol intake: current Alcohol intake frequency: holidays/special occasions only Alcohol type: beer Patient Tobacco Use Status: Former Tobacco user Tobacco use type: Cigarette e-Cigarette/Vaping Use: Never Used Second Hand Smoke Exposure: No service: No Current occupational status: retired Current occupational exposures/hazards: No Sexual orientation: Straight/Heterosexual Gender identity: Male Cognitive needs: No Hearing needs: Yes Vision needs: No Questionnaire Thrive Questionnaire Date Thrive assessed: 12/02/23 GERRI-7 AMB Questionnaire GERRI-7 Date GERRI - 7 assessed: 12/02/23 Source: Developed by Drs. Richie Mead, Rizwana Sifuentes, Stanley Manrique and colleagues, with an educational jocelyn from [employer]. Review of Systems Const Denies chills, Denies fatigue, Denies fever(s), Denies headache(s) and Denies weakness ENT Denies dizziness and Denies headache(s) Card Denies dyspnea Resp Denies cough, Denies dyspnea, Denies wheezing and Denies other (shortness of breath) Musc Denies numbness and Denies tingling Neuro Denies dizziness, Denies headache(s), Denies numbness, Denies tingling and Denies weakness Psych Denies anxiety and Denies depression Endo Denies fatigue Aller/Immun Denies wheezing Physical exam (Primary Care) Vital Signs: Last Vital Signs Temp 97.7 F 03/02/24 08:30 Pulse 43 L 03/02/24 08:30 Resp 14 03/02/24 08:30 BP 122/70 03/02/24 08:30 Pulse Ox 99 03/02/24 08:30 Oxygen Delivery Method Room Air 03/02/24 08:30 BMI result Body Mass Index 26.0 Tobacco/Smoking Status: Tobacco use Status Tobacco use date assessed 10/02/23 03/02/24 08:33 Patient Tobacco Use Status Former Tobacco user 03/02/24 08:33 Tobacco use type Cigarette 03/02/24 08:33 e-Cigarette/Vaping Use Never Used 03/02/24 08:33 Thrive Assessment: Date of Thrive Assessment Date Thrive assessed 12/02/23 03/02/24 08:33 Const General: well developed; No acute distress Nutritional Appearance: well nourished Orientation/consciousness: patient oriented x3 HENMT Head: Yes normocephalic and Yes atraumatic Eyes General: appearance normal, both eyes and all related structures Pupils: Equal, round and reactive pupils present EOM: EOMs intact bilaterally Resp Effort & Inspection: normal respiratory effort Neuro General: patient oriented x3 and gait normal Cranial nerves: Yes Equal, round and reactive pupils present Psych Affect: normal affect Assessment and Plan Assessment & Plan (1) Essential hypertension: Code(s): I10 - Essential (primary) hypertension Plan: There?is?well?controlled.??Goal?is?less?than?130/80 Continue?current?medications (2) Pre-diabetes: Code(s): R73.03 - Prediabetes Plan: A1c?has?climbed?from?5.7%?to?6.1%;?still?in?pre?diabetes?range Continue?a?diet?lower?in?sugars?and?starches Encouraged?weight?loss?and?exercise (3) CAD (coronary artery disease): Comment: Sees Dr Callahan Code(s): I25.10 - Atherosclerotic heart disease of [place] coronary artery without angina pectoris Plan: Stable He?has?an?appointment?with?his?fire extinguisher repairer?tomorrow (4) Elevated AST (SGOT): Code(s): R74.01 - Elevation of levels of liver transaminase levels Plan: Mildly?elevated?liver?enzymes Encouraged?weight?loss (5) Borderline anemia: Code(s): D64.9 - Anemia, unspecified Plan: Borderline?anemia Labs?are?ordered?and?he?will?get?his?labs?drawn?to?recheck?this?prior?to?upcomin g?telemedicine?appointment?in?about?a?month Coding Level of Care Code Est Pt Level 4 (54397) Diagnoses Essential hypertension I10 Pre-diabetes R73.03 CAD (coronary artery disease) I25.10 Elevated AST (SGOT) R74.01 Borderline anemia D64.9
== END 2024-03-02 08:53 | disposition home or self-care (01) ==
PROVIDERS: PCP Family Medicine; Visit Provider Family Medicine
DX: I10 Essential (primary) hypertension (principal); R73.03 Prediabetes; I25.10 Atherosclerotic heart disease of native coronary artery without angina pectoris; R74.01 Elevation of levels of liver transaminase levels; D64.9 Anemia, unspecified
CPT/HCPCS: 83036; 99214

== ENCOUNTER 2024-03-03 07:34 | Outpatient (REF) | payer MEDICARE, BC, SELFPAY ==
[2024-03-03 07:52] LABS: MANUAL DIFF FLAG NO
[2024-03-03 08:16] LABS: Basophils Percent Auto 0.4 % (0-2); Eosinophils Absolute Auto 0.2 X10*3/uL (0.0-0.4); Eosinophils Percent Auto 3.2 % (0-4); Hematocrit 44.7 % (42.0-52.0); Hemoglobin 15.7 g/dl (14.0-18.0); Imm Gran Abs Auto 0.01 X10*3/uL (0.00-0.03); Imm Gran Pct Auto 0.2 % (0.0-0.4); Lymphocytes Percent Auto 37.2 % (20-40); Mean Corpuscular HGB Conc 35.1 g/dl (31.0-36.0); Mean Corpuscular Volume 91.2 fL (80.0-98.0); Mean Platelet Volume 11.4 fL (9.4-12.4); Monocytes Absolute Auto 0.5 X10*3/uL (0.1-1.2); Monocytes Percent Auto 9.5 % (2-11); Neutrophils Absolute Auto 2.6 x10*3/uL (2.0-8.3); Neutrophils Percent Auto 49.5 % (45-73); Platelet Count 125 X10*3/uL (160-400); Red Cell Distribution Width 12.1 % (11.0-16.0); White Blood Count 5.2 X10*3/uL (4.8-10.8)
[2024-03-03 08:27] LABS: Estimated Average Glucose 123 mg/dL; Hemoglobin A1c % 5.9 % (<6.0)
[2024-03-03 09:09] LABS: Alanine Aminotransferase 17 U/L (0-40); Albumin Level 4.4 g/dL (3.5-5.0); Alkaline Phosphatase 54 U/L (39-117); Anion Gap 12 (12-20); Aspartate Amino Transferase 31 U/L (5-37); Bilirubin Total 1.1 mg/dL (0.0-1.0); Blood Urea Nitrogen 18 mg/dL (9-16); Calcium 9.6 mg/dL (8.4-10.2); Carbon Dioxide 30 mmol/L (22-29); Chloride 104 mmol/L (96-108); Estimated Glomerular Filt Rate > 60; Glucose Fasting 127 mg/dL (60-99); Potassium 4.5 mmol/L (3.3-5.1); Sodium 141 mmol/L (135-145); Total Protein 7.1 g/dL (6.5-8.0)
== END 2024-03-03 07:35 | disposition home or self-care (01) ==
LOC: HO.LAB 07:34
PROVIDERS: PCP Family Medicine; Visit Provider Family Medicine
DX: I25.10 Atherosclerotic heart disease of native coronary artery without angina pectoris (principal); R00.1 Bradycardia, unspecified; I10 Essential (primary) hypertension; Z79.82 Long term (current) use of aspirin; Z79.899 Other long term (current) drug therapy; Z00.00 Encounter for general adult medical examination without abnormal findings; D64.9 Anemia, unspecified; R74.01 Elevation of levels of liver transaminase levels; R73.01 Impaired fasting glucose; R73.03 Prediabetes
CPT/HCPCS: 36415; 80053; 83036; 85025; 99212

== ENCOUNTER 2024-03-03 10:20 | Outpatient (AMB) | payer MEDICARE, BC, SELFPAY ==
--- NOTE | 2024-03-03 10:29 | A.OFFVIS_ITS ---
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 Allergies No Known Allergies [No Known Allergies*] Allergy (Verified 03/02/24 08:38) bee stings Allergy (Intermediate, Uncoded 12/02/23 09:14) swelling Medication List - Last Reconciled 03/03/24 by Bharat Callahan MD aspirin (Adult Aspirin Regimen) 81 mg PO DAILY atorvastatin 40 mg PO DAILY epinephrine (EpiPen 2-Bandar) 0.3 mg (0.3 mL) IM Q10M PRN ezetimibe 10 mg PO DAILY fluticasone propionate 50 mcg/actuation (Flonase Allergy Relief) 1 spray intranasal Q12H 30 days hydrochlorothiazide 12.5 mg (1/2 x 25 mg) PO QAM 90 days irbesartan 150 mg PO DAILY 90 days omeprazole 20 mg PO DAILY 90 days sildenafil 100 mg PO DAILY PRN 30 days HPI Comments Details: Carson comes for follow-up. He has been doing well and continues to play 18 hole golf without any limitations. Denies any exertional chest pain or shortness of breath. Takes all his medications. Denies any heart failure symptoms. No prolonged palpitations, lightheadedness, syncope. Last LDL well optimized at 39 mg/dL. [facility] Medical History Sinus bradycardia Arthritis History of heartburn Elevated cholesterol CAD (coronary artery disease) Diet-controlled type 2 diabetes mellitus Myocardial infarction HTN (hypertension) Surgical History Stented coronary artery History of breast lump/mass excision Hx of tonsillectomy History of bilateral cataract extraction Hx of colonoscopy Family History Father CAD (coronary artery disease) Myocardial infarction Diabetes mellitus Mother Diabetes mellitus COPD (chronic obstructive pulmonary disease) Brother Alcoholism Substance abuse Son No problems noted. Son Lyme disease Social History Household Members: Spouse Both parents involved: No Caregiver staying overnight: No Housing: House Are you a primary daytime caregiver to a significant other at home: No Do you presently have visiting nurse or other home services: No 75 years or older and lives alone: No Alcohol intake: current Alcohol intake frequency: holidays/special occasions only Alcohol type: beer Patient Tobacco Use Status: Former Tobacco user Tobacco use type: Cigarette e-Cigarette/Vaping Use: Never Used Second Hand Smoke Exposure: No service: No Current occupational status: retired Current occupational exposures/hazards: No Sexual orientation: Straight/Heterosexual Gender identity: Male Cognitive needs: No Hearing needs: Yes Vision needs: No Review of Systems Const Denies chills, Denies fatigue, Denies fever(s), Denies frequent falls, Denies weakness, Denies weight gain and Denies weight loss ENT Denies dizziness Card Denies chest pain, Denies leg edema, Denies lightheadedness, Denies palpitations, Denies dyspnea, Denies dyspnea on exertion, Denies orthopnea and Denies other (loss of consciousness) Resp Denies cough, Denies dyspnea and Denies dyspnea on exertion GI Denies hematochezia and Denies change in stool character Musc Denies abnormal gait, Denies muscle weakness, Denies numbness, Denies radiating pain into limb and Denies tingling Neuro Denies abnormal gait, Denies dizziness, Denies frequent falls, Denies numbness, Denies tingling and Denies weakness Endo Denies fatigue and Denies palpitations Physical Exam Vital Signs: Last Vital Signs Pulse 46 L 03/03/24 10:30 BP 120/74 03/03/24 10:30 BMI result Body Mass Index 25.3 Const General: cooperative, comfortable, no acute distress, well developed, alert, awake and well groomed Nutritional Appearance: average body habitus Orientation/consciousness: patient oriented x3 Limitations: no limitations Neck Neck: Yes trachea midline, Yes supple and Yes no JVD Carotids: no bruits Resp Effort & Inspection: normal respiratory effort Auscultation: clear to auscultation bilaterally Cardio Jugular venous distension: no JVD Palpation: normal PMI Rate: regular rate Rhythm: regular rhythm Heart sounds: S1 normal heart sound present and S2 normal heart sound present Peripheral pulses: Peripheral pulses 2+ throughout GI Auscultation: normal bowel sounds Skin General skin exam: no rashes or lesions noted Neuro General: patient oriented x3 and no focal motor deficits Extrem General: Yes no clubbing, cyanosis or edema Psych Appearance: grossly normal Assessment & Plan Assessment & Plan (1) CAD (coronary artery disease): Comment: Sees Dr Callahan Code(s): I25.10 - Atherosclerotic heart disease of [place] coronary artery without angina pectoris Category: Medical Plan: CAD with remote stenting to LAD for acute coronary syndrome without any recurrent symptoms. Will suggest exercise myocardial perfusion imaging for CAD surveillance to evaluate for any asymptomatic myocardial ischemia. Continue low-dose aspirin therapy for life. Continue aggressive risk factor modification with atorvastatin as well as ezetimibe therapy with well optimized LDL this point time. Continue aggressive blood pressure control which is currently well optimized advised to monitor blood pressure at home maintain a log. Goal blood pressure less than 130/84. Encouraged to continue to participate in physical activity as tolerated. Advised to call me with any new symptoms. (2) Sinus bradycardia: Code(s): R00.1 - Bradycardia, unspecified Category: Medical Plan: Sinus bradycardia which is currently without any symptoms. Maintains high level of activity most likely cause for sinus bradycardia. No symptoms related to it. No pacing therapy indicated. Avoid rate lowering medications in future. (3) Essential hypertension: Code(s): I10 - Essential (primary) hypertension Category: Medical Plan: Hypertension which is currently well optimized advised to monitor blood pressure at home maintain a log. Goal blood pressure less than 130/84. Advised low-salt diet. Advised to continue current therapy. Will follow up in the clinic in 1 year's time, sooner p.r.n.. Thank you for allowing me to partake in his care Orders: Orders 2 CA stress test Today I25.10 - Atherosclerotic heart disease of [place] coronary artery without angina pectoris NM cardiolite stress test 2 Weeks I25.10 - Atherosclerotic heart disease of [place] coronary artery without angina pectoris, R07.9 - Chest pain, unspecified Coding Level of Care Code Est Pt Level 4 (42914) Diagnoses CAD (coronary artery disease) I25.10 Sinus bradycardia R00.1 Essential hypertension I10
[2024-03-03 10:30] VITALS: BP 120/74; PULSE 46; BMI 25.3
== END 2024-03-03 10:59 | disposition home or self-care (01) ==
PROVIDERS: PCP Family Medicine; Visit Provider Internal Medicine Cardiovascular Disease
DX: I25.10 Atherosclerotic heart disease of native coronary artery without angina pectoris (principal); R00.1 Bradycardia, unspecified; I10 Essential (primary) hypertension
CPT/HCPCS: 99214

== ENCOUNTER → 2024-04-10 07:53 | Outpatient (REF) | payer MEDICARE, BC, SELFPAY ==
--- NOTE | ~2024-04-10 | NM_ITS ---
Exercise Myocardial perfusion study Indication: Chest pain to evaluate for myocardial ischemia Technique: The patient was brought in for an exercise perfusion study on 04/10/2024. Patient performed exercise as per Zeeshan protocol and was injected 27 mCi of sestamibi was given intravenously one target HR was achieved. Images were obtained using the SPECT gamma camera interlaced with the gating device. Images were obtained in supine position. Resting perfusion study was performed on 04/14/2024. Patient was administered 27 mCi of sestamibi intravenously at rest. Images were then obtained in supine position. Images obtained with and without CT attenuation. Total DLP 98 mGy-cm. Images were processed with the software and compared side to side in short axis, horizontal long axis and vertical long axis views. Findings: The stress perfusion study showed non attenuated images show mildly reduced uptake in the apex as well as basal inferior wall of the LV myocardium. Attenuated corrected images show mildly reduced uptake in the inferior wall, inferoseptal wall as well as moderately reduced uptake in the apex of the LV myocardium.. The gated study shows normal LV systolic function with calculated LVEF of 67%. LV cavity is normal in size. The gated study shows normal systolic wall thickening and contraction of all segments. There is no transient ischemic dilation. Resting study shows attenuated corrected images show improvement in the inferior, inferoseptal as well as the apical wall of the LV myocardium suggestive of ischemia. Gating at rest reveals normal systolic wall motion with ejection fraction at 58%. The findings are consistent with mild intensity inferior as well as inferoseptal and moderate intensity apical ischemia most likely in RCA territory. NM/NM cardiolite stress test Impression: 1. Inferior, inferoseptal and apical ischemia in RCA territory 2. Gated LVEF is 67% 3. Transient ischemic dilatation not present Stress EKG is equivocal for ischemia
--- NOTE | 2024-04-10 07:56 | CA_ITS ---
Acquisition Time: 2024-04-10 07:53:40 Total Exercise Time: 00:10:00 Test Indications: CAD, SB Medications: SEE H Protocol: KIARA Max HR: 136 BPM 93% of Pred: 145 BPM Max BP: 130/054 mmHG Max Work Load: 11.7 METS Exercise stress test exercise 10 min of Kiara protocol achieving 93% MPHR, without anginal symptoms, with isolated PACs and PVCs, with normotensive response to exericse, with normal HR response, withT wave inversion V6. Nuclear images pending. Test reviewed with Dr. Forbes. Patient had hypotensive response to IV insertion. SBP was 120 dropped to 90 and HR went from 40s to 50s with lightheadedness, clamminess, and pale. Put into laying position. IV fluids opened. Symtpoms resolved. Slowly put into a sitting position and no symptoms reported by patient. Referred By: Bharat Callahan Overread By: Marilu Gomes
== END ==
LOC: HO.CARD 07:53
PROVIDERS: PCP Family Medicine; Visit Provider Internal Medicine Cardiovascular Disease
DX: R07.9 Chest pain, unspecified (principal); I25.10 Atherosclerotic heart disease of native coronary artery without angina pectoris
CPT/HCPCS: 78452; 93017; A9500

== ENCOUNTER → 2024-04-10 07:56 | Outpatient (BNV) | payer MEDICARE, BC, SELFPAY | PROVIDERS: PCP Family Medicine; Visit Provider Nurse Practitioner | DX: R07.9 Chest pain, unspecified (principal) | CPT/HCPCS: 78452; 93016; 93018 ==

== ENCOUNTER → 2024-05-06 14:26 | Outpatient (AMB) | payer MEDICARE, BC, SELFPAY ==
--- NOTE | 2024-05-06 14:24 | A.OFFPC_ITS ---
Intake Visit Reasons: f/u labs via telemedicine Intake Note: lab results follow up Allergies No Known Allergies [No Known Allergies*] Allergy (Verified 05/06/24 14:24) bee stings Allergy (Intermediate, Uncoded 12/02/23 09:14) swelling Tobacco use date assessed: 10/02/23 Dental Screening Dental Screen Date: 03/02/24 HPI f/u labs via telemedicine HPI Details 74 y/o male presents to review labs rega rding liver enzyme elevation and mild anemia. Labs were drawn 03/03/24. Reviewed labs with pt. Elevated fasting glucose of 127. A1c 5.9%. Liver enzymes are fine - AST 31 and ALT 17. Mild anemia has improved. Recent cardiolite stress test 04/14/24 shows: 1. Inferior, inferoseptal and apical ischemia in RCA territory 2. Gated LVEF is 67% 3. Transient ischemic dilatation not pre sent HPI Comments History of Present Illness Details Documentation assistance for Amado Carrillo MD, was provided by Evelio Kelly, Tree Topper on 05/06/2024 at 2:36 PM EST. I, Dr. Carrillo, have read, observed, and verified documentation. [facility] Medical History Sinus bradycardia Arthritis History of heartburn Elevated cholesterol CAD (coronary artery disease) Diet-controlled type 2 diabetes mellitus Myocardial infarction HTN (hypertension) Surgical History Stented coronary artery History of breast lump/mass excision Hx of tonsillectomy History of bilateral cataract extraction Hx of colonoscopy Family History Father CAD (coronary artery disease) Myocardial infarction Diabetes mellitus Mother Diabetes mellitus COPD (chronic obstructive pulmonary disease) Brother Alcoholism Substance abuse Son No problems noted. Son Lyme disease Social History Household Members: Spouse Both parents involved: No Caregiver staying overnight: No Housing: House Are you a primary healthcare management consultant to a significant other at home: No Do you presently have visiting nurse or other home services: No 75 years or older and lives alone: No Alcohol intake: current Alcohol intake frequency: holidays/special occasions only Alcohol type: beer Patient Tobacco Use Status: Former Tobacco user Tobacco use type: Cigarette e-Cigarette/Vaping Use: Never Used Second Hand Smoke Exposure: No service: No Current occupational status: retired Current occupational exposures/hazards: No Sexual orientation: Straight/Heterosexual Gender identity: Male Cognitive needs: No Hearing needs: Yes Vision needs: No Questionnaire Thrive Questionnaire Date Thrive assessed: 12/02/23 GERRI-7 AMB Questionnaire GERRI-7 Date GERRI - 7 assessed: 12/02/23 Source: Developed by Drs. Richie Mead, Rizwana Sifuentes, Stanley Manrique and colleagues, with an educational jocelyn from [employer]. Review of Systems Const Denies chills, Denies fatigue, Denies fever(s), Denies headache(s) and Denies weakness ENT Denies dizziness and Denies headache(s) Card Denies dyspnea Resp Denies cough, Denies dyspnea, Denies wheezing and Denies other (shortness of breath) Musc Denies numbness and Denies tingling Neuro Denies dizziness, Denies headache(s), Denies numbness, Denies tingling and Denies weakness Psych Denies anxiety and Denies depression Endo Denies fatigue Aller/Immun Denies wheezing Physical exam (Primary Care) Tobacco/Smoking Status: Tobacco use Status Tobacco use date assessed 10/02/23 05/06/24 14:26 Patient Tobacco Use Status Former Tobacco user 05/06/24 14:26 Tobacco use type Cigarette 05/06/24 14:26 e-Cigarette/Vaping Use Never Used 05/06/24 14:26 Thrive Assessment: Date of Thrive Assessment Date Thrive assessed 12/02/23 05/06/24 14:26 Telehealth Telehealth Telehealth Platform: Telephone Location of provider rendering services: practice address Location of patient: address on file Patient Identification confirmed using: Name, : Yes Telehealth method: voice only Patient verbally consented to treatment: Yes Patient verbally consented to billing insurance company: Yes Patient informed of any privacy concerns related to visit: Yes Minutes spent on Phone/Video with Pt.: 10 Assessment and Plan Assessment & Plan (1) Borderline anemia: Code(s): D64.9 - Anemia, unspecified Plan: This?has?resolved Still?has?mild?thrombocytopenia?and?we?can?monitor?that (2) Pre-diabetes: Code(s): R73.03 - Prediabetes Plan: A1c?most?recently?5.9%. Encouraged?diet?low?in?sugars?and?starches He?has?lost?4-5?lb?and?I?encouraged?further?weight?loss (3) Elevated AST (SGOT): Code(s): R74.01 - Elevation of levels of liver transaminase levels Plan: Mildly?elevated?liver?enzymes?at?prior?Check.??This?has?resolved Encouraged?a?little?more?weight?loss (4) Abnormal stress test: Code(s): R94.39 - Abnormal result of other cardiovascular function study Plan: Stress?test?shows?ischemia He?has?no?symptoms?with?exertion He?has?an?appointment?to?follow-up?with?Cardiology He?can? go?about?his?usual?activities?but?if?he?has?any?chest?pain?with?exertion?he?shou ld?stop?what?he?is?doing?and?if?this?does?not?improve?he?should?go?to?an?ED. Otherwise?follow-up?with?Cardiology?next?week?as?recommended (5) CAD (coronary artery disease): Comment: Sees Dr Callahan Code(s): I25.10 - Atherosclerotic heart disease of [place] coronary artery without angina pectoris Plan: As?above Coding Level of Care Code Tele Est Pt Level 2 (69961) Diagnoses Borderline anemia D64.9 Pre-diabetes R73.03 Elevated AST (SGOT) R74.01 Abnormal stress test R94.39 CAD (coronary artery disease) I25.10
== END ==
LOC: HO.HMGFM 14:26
PROVIDERS: PCP Family Medicine; Visit Provider Family Medicine
DX: D64.9 Anemia, unspecified (principal); R73.03 Prediabetes; R74.01 Elevation of levels of liver transaminase levels; R94.39 Abnormal result of other cardiovascular function study; I25.10 Atherosclerotic heart disease of native coronary artery without angina pectoris
CPT/HCPCS: 99442

== ENCOUNTER 2024-05-11 13:00 | Outpatient (AMB) | payer MEDICARE, BC, SELFPAY ==
--- NOTE | 2024-05-11 13:04 | MHC.OFFVIS ---
Vital Signs 05/11/24 13:08 Height 5 ft 10 in Weight 176 lb BMI 25.3 BP 122/60 Blood Pressure Location Lt brachial Position Sitting Pulse 56 Pulse Source Pulse Oximeter Intake Visit Reasons: follow-up after stress test Allergies No Known Allergies [No Known Allergies*] Allergy (Verified 05/06/24 14:24) bee stings Allergy (Intermediate, Uncoded 12/02/23 09:14) swelling Medication List - Last Reconciled 05/11/24 by Bharat Callahan MD aspirin (Adult Aspirin Regimen) 81 mg PO DAILY atorvastatin 40 mg PO DAILY epinephrine (EpiPen 2-Bandar) 0.3 mg (0.3 mL) IM Q10M PRN ezetimibe 10 mg PO DAILY fluticasone propionate 50 mcg/actuation (Flonase Allergy Relief) 1 spray intranasal Q12H 30 days hydrochlorothiazide 12.5 mg (1/2 x 25 mg) PO QAM 90 days irbesartan 150 mg PO DAILY 90 days metoprolol succinate ER (Toprol XL) 25 mg PO DAILY omeprazole 20 mg PO DAILY 90 days sildenafil 100 mg PO DAILY PRN 30 days HPI Comments Details: Sky comes for follow-up. Continues to have no significant symptoms with exercise. Walks long distance without any issues. No exertional chest pain. Myocardial perfusion imaging showed inferior and inferoseptal ischemia in RCA territory at high workload. He takes all his medications regularly. [facility] Medical History Sinus bradycardia Arthritis History of heartburn Elevated cholesterol CAD (coronary artery disease) Diet-controlled type 2 diabetes mellitus Myocardial infarction HTN (hypertension) Surgical History Stented coronary artery History of breast lump/mass excision Hx of tonsillectomy History of bilateral cataract extraction Hx of colonoscopy Family History Father CAD (coronary artery disease) Myocardial infarction Diabetes mellitus Mother Diabetes mellitus COPD (chronic obstructive pulmonary disease) Brother Alcoholism Substance abuse Son No problems noted. Son Lyme disease Social History Household Members: Spouse Both parents involved: No Caregiver staying overnight: No Housing: House Are you a primary adult caregiver to a significant other at home: No Do you presently have visiting nurse or other home services: No 75 years or older and lives alone: No Alcohol intake: current Alcohol intake frequency: holidays/special occasions only Alcohol type: beer Patient Tobacco Use Status: Former Tobacco user Tobacco use type: Cigarette e-Cigarette/Vaping Use: Never Used Second Hand Smoke Exposure: No service: No Current occupational status: retired Current occupational exposures/hazards: No Sexual orientation: Straight/Heterosexual Gender identity: Male Cognitive needs: No Hearing needs: Yes Vision needs: No Review of Systems Const Denies weakness ENT Denies dizziness Card Denies chest pain, Denies chest pain with activity, Denies syncope, Denies rapid heart rate, Denies pedal edema, Denies edema, Denies leg edema, Denies lightheadedness, Denies palpitations, Denies dyspnea, Denies dyspnea on exertion and Denies orthopnea Resp Denies cough, Denies dyspnea and Denies dyspnea on exertion GI Denies hematochezia and Denies change in stool character Musc Denies abnormal gait, Denies muscle cramps, Denies muscle weakness, Denies numbness, Denies radiating pain into limb and Denies tingling Neuro Denies abnormal gait, Denies dizziness, Denies syncope, Denies numbness, Denies tingling and Denies weakness Endo Denies palpitations Physical Exam Vital Signs: Last Vital Signs Pulse 56 05/11/24 13:08 BP 122/60 05/11/24 13:08 BMI result Body Mass Index 25.3 Const General: cooperative, comfortable, no acute distress, well developed, alert, awake and well groomed Nutritional Appearance: average body habitus Orientation/consciousness: patient oriented x3 Limitations: no limitations Neck Neck: Yes trachea midline, Yes supple and Yes no JVD Carotids: no bruits Resp Effort & Inspection: normal respiratory effort Auscultation: clear to auscultation bilaterally Cardio Jugular venous distension: no JVD Palpation: normal PMI Rate: regular rate Rhythm: regular rhythm Heart sounds: S1 normal heart sound present and S2 normal heart sound present Peripheral pulses: Peripheral pulses 2+ throughout GI Auscultation: normal bowel sounds Skin General skin exam: no rashes or lesions noted Neuro General: patient oriented x3 and no focal motor deficits Extrem General: Yes no clubbing, cyanosis or edema Psych Appearance: grossly normal Assessment & Plan Assessment & Plan (1) CAD (coronary artery disease): Comment: Sees Dr Callahan Code(s): I25.10 - Atherosclerotic heart disease of [place] coronary artery without angina pectoris Category: Medical Plan: CAD with abnormal stress test suggestive of RCA territory ischemia. His cardiac catheterization in 2013 had shown nonobstructive RCA disease with less than 30% stenosis. There is no ischemia in the LAD territory. He also can perform high workload. Would evaluate him with noninvasive coronary CTA to further assess for progressive CAD in the RCA territory. This was discussed with him. He is agreeable. Meanwhile advised him to continue current medications current activity level. He develops any symptoms advised to call me. Overall his blood pressure is currently well optimized. Follow up in the clinic if necessary after coronary CTA or on annual basis. Coding Level of Care Code Est Pt Level 4 (79239) Diagnoses CAD (coronary artery disease) I25.10
[2024-05-11 13:08] VITALS: BP 122/60; PULSE 56; BMI 25.3
== END 2024-05-11 13:40 | disposition home or self-care (01) ==
PROVIDERS: PCP Family Medicine; Visit Provider Internal Medicine Cardiovascular Disease
DX: I25.10 Atherosclerotic heart disease of native coronary artery without angina pectoris (principal)
CPT/HCPCS: 99214

== ENCOUNTER → 2024-05-11 13:00 | Outpatient (BNVA) | payer MEDICARE, BC, SELFPAY | PROVIDERS: PCP Family Medicine; Visit Provider Internal Medicine Cardiovascular Disease | DX: I25.10 Atherosclerotic heart disease of native coronary artery without angina pectoris (principal) | CPT/HCPCS: 99212 ==

== ENCOUNTER 2024-07-16 08:15 | Outpatient (REF) | payer MEDICARE, BC, SELFPAY ==
[2024-07-16 09:24] LABS: Anion Gap 11 (12-20); Blood Urea Nitrogen 20 mg/dL (9-16); Calcium 9.8 mg/dL (8.4-10.2); Carbon Dioxide 30 mmol/L (22-29); Chloride 104 mmol/L (96-108); Estimated Glomerular Filt Rate > 60; Glucose Random 127 mg/dL (60-115); Potassium 4.4 mmol/L (3.3-5.1); Sodium 141 mmol/L (135-145)
== END 2024-07-16 08:16 | disposition home or self-care (01) ==
LOC: HO.LAB 08:15
PROVIDERS: PCP Family Medicine; Visit Provider Internal Medicine Cardiovascular Disease
DX: R94.39 Abnormal result of other cardiovascular function study (principal); I25.10 Atherosclerotic heart disease of native coronary artery without angina pectoris
CPT/HCPCS: 36415; 80048

== ENCOUNTER 2024-08-31 11:22 | Outpatient (AMB) | payer MEDICARE, BC, SELFPAY ==
--- NOTE | 2024-08-31 11:50 | MHC.PC.OV ---
Vital Signs 08/31/24 11:59 Height 5 ft 10 in Weight 185 lb 4 oz BMI 26.6 BP 110/60 Blood Pressure Location Lt brachial Position Sitting Respiration 16 Pulse 42 L Pulse Source Pulse Oximeter Temp 97.9 F Temp Source Oral Pulse Oximetry (%) 97 Oxygen Delivery Method Room Air Intake Visit Reasons: follow up on BP and A1C Intake Note: f/u for b/p and DM Allergies No Known Allergies [No Known Allergies*] Allergy (Verified 08/31/24 11:59) bee stings Allergy (Intermediate, Uncoded 12/02/23 09:14) swelling Tobacco use date assessed: 10/02/23 Dental Screening Dental Screen Date: 03/02/24 HPI follow up on BP and A1C HPI Details 74 y/o male presents to f/u pre-diabetes, hypertension. Blood pressure today 110/60, 42p. He is on metoprolol 25mg daily, irbesartan 150mg daily. He notes metoprolol has been making him dizzy. A1c today 08/31/24 5.7%. [facility] Medical History Sinus bradycardia Arthritis History of heartburn Elevated cholesterol CAD (coronary artery disease) Diet-controlled type 2 diabetes mellitus Myocardial infarction HTN (hypertension) Surgical History Stented coronary artery History of breast lump/mass excision Hx of tonsillectomy History of bilateral cataract extraction Hx of colonoscopy Family History Father CAD (coronary artery disease) Myocardial infarction Diabetes mellitus Mother Diabetes mellitus COPD (chronic obstructive pulmonary disease) Brother Alcoholism Substance abuse Son No problems noted. Son Lyme disease Social History Household Members: Spouse Both parents involved: No Caregiver staying overnight: No Housing: House Are you a primary patient care secretary to a significant other at home: No Do you presently have visiting nurse or other home services: No 75 years or older and lives alone: No Alcohol intake: current Alcohol intake frequency: holidays/special occasions only Alcohol type: beer Patient Tobacco Use Status: Former Tobacco user Tobacco use type: Cigarette e-Cigarette/Vaping Use: Never Used Second Hand Smoke Exposure: No service: No Current occupational status: retired Current occupational exposures/hazards: No Sexual orientation: Straight/Heterosexual Gender identity: Male Cognitive needs: No Hearing needs: Yes Vision needs: No Questionnaire PHQ-9 Over the last 2 weeks, how often have you been bothered by any of the following problems? 1. Little interest or pleasure in doing things: not at all 2. Feeling down, depressed, or hopeless: not at all 3. Trouble falling or staying asleep, or sleeping too much: not at all 4. Feeling tired or having little energy: not at all 5. Poor appetite or overeating: not at all 6. Feeling bad about yourself - or that you are a failure or have let yourself or your family down: not at all 7. Trouble concentrating on things, such as reading the newspaper or watching television: not at all 8. Moving or speaking so slowly that other people could have noticed. Or the opposite - being so fidgety or restless that you have been moving around a lot more than usual: not at all 9. Thoughts that you would be better off or of hurting yourself in some way: not at all Total score: 0 Source: Developed by Drs. Richie Mead, Rizwana Sifuentes, Stanley Manrique and colleagues, with an educational jocelyn from [employer]. Thrive Questionnaire Date Thrive assessed: 08/24/24 I am a: Patient What is your living situation today?: I have a steady place to live Within the past 12 months, did the food you bought not last and you didn't have the money to get more?: Never true Within the past 12 months, did you worry whether your food would run out before you got money to buy more?: Never true Do you have trouble paying for medicines?: No Do you have trouble getting transportation to medical appointments?: No Do you have trouble paying your heating and electricity bill?: No Do you have trouble taking care of your child, family member or friend?: No Do you have trouble with day-to-day activities such as bathing, preparing meals, shopping, managing finances, etc.?: No Are you currently unemployed and looking for a job?: No Are you interested in more education?: No Please select the resources that you would like help with: None Currently or been in a relationship where the following occur: No concerns reported THRIVE Score: 0 AUDIT C Alcohol Use Questionnaire (AUDIT-C) 1. How often do you have a drink containing alcohol?: 2-3 times a week 2. How many drinks containing alcohol do you have on a typical day when you are drinking?: 1 or 2 3. How often do you have six or more drinks on one occasion?: Never Total Score: 3 GERRI-7 AMB Questionnaire GERRI-7 Date GERRI - 7 assessed: 12/02/23 Feeling nervous, anxious, or on edge: 0 = Not at all Not being able to stop or control worryin = Not at all Worrying too much about different things: 0 = Not at all Trouble relaxin = Not at all Being so restless that it is hard to sit still: 0 = Not at all Becoming easily annoyed or irritable: 0 = Not at all Feeling afraid as if something awful might happen: 0 = Not at all Total GERRI-7 score (0-4 normal; 5-9 mild; 10-14 moderate; 15-21 severe): 0 Source: Developed by Drs. Richie Mead, Rizwana Sifuentes, Stanley Manrique and colleagues, with an educational jocelyn from [employer]. Review of Systems Const Denies chills, Denies fatigue, Denies fever(s), Denies headache(s) and Denies weakness ENT Denies dizziness and Denies headache(s) Card Denies chest pain, Denies lightheadedness, Denies dyspnea and Denies other (Palpitations) Resp Denies cough, Denies dyspnea, Denies wheezing and Denies other ( shortness of breath) Musc Denies numbness and Denies tingling Neuro Denies dizziness, Denies headache(s), Denies numbness, Denies tingling, Denies paresthesias and Denies weakness Psych Denies anxiety and Denies depression Endo Denies fatigue Aller/Immun Denies wheezing Physical exam (Primary Care) Vital Signs: Last Vital Signs Temp 97.9 F 08/31/24 11:59 Pulse 42 L 08/31/24 11:59 Resp 16 08/31/24 11:59 BP 110/60 08/31/24 11:59 Pulse Ox 97 08/31/24 11:59 Oxygen Delivery Method Room Air 08/31/24 11:59 BMI result Body Mass Index 26.6 Tobacco/Smoking Status: Tobacco use Status Tobacco use date assessed 10/02/23 08/31/24 11:52 Patient Tobacco Use Status Former Tobacco user 08/31/24 11:52 Tobacco use type Cigarette 08/31/24 11:52 e-Cigarette/Vaping Use Never Used 08/31/24 11:52 PHQ-9: PHQ-9 Score PHQ-9: Total score 0 08/31/24 12:12 Thrive Assessment: Date of Thrive Assessment Date Thrive assessed 08/24/24 08/31/24 11:52 Currently or been in a relationship where the following occur: No concerns reported Const General: no acute distress and well developed Nutritional Appearance: well nourished Orientation/consciousness: patient oriented x3 HENMT Head: Yes normocephalic and Yes atraumatic Eyes General: appearance normal, both eyes and all related structures Pupils: Equal, round and reactive pupils present EOM: EOMs intact bilaterally Resp Effort & Inspection: normal respiratory effort Auscultation: clear to auscultation bilaterally Cardio Rate: regular rate Rhythm: regular rhythm Heart sounds: S1 normal heart sound present, S2 normal heart sound present, no gallops, no murmurs and no rubs Neuro General: patient oriented x3 and gait normal Cranial nerves: Yes Equal, round and reactive pupils present Psych Affect: normal affect Coding Level of Care Code Est Pt Level 3 (02092) Diagnoses Essential hypertension I10 Pre-diabetes R73.03 Assessment & Plan Assessment & Plan (1) Essential hypertension: Code(s): I10 - Essential (primary) hypertension Category: Medical Plan: Blood?pressure?is?well?controlled?and?possibly?a?little?low?as?patient?is?noticing?he?gets?dizzy?lately. Heart?rate?is?also?rather?low. Will?have?him?cut?his?metoprolol?in?half?to?take?12.5?mg?daily He?will?make?sure?he?is?hydrating?well. Check?blood?pressures?and?call?if?blood?pressure?is?higher?than?130/80 He?will?discuss?with??Jun?as?well (2) Pre-diabetes: Code(s): R73.03 - Prediabetes Category: Medical Plan: A1c?now?5.7%.??Low?pre?diabetes?range Continue?diet?control?and?exercise
[2024-08-31 11:59] VITALS: BP 110/60; PULSE 42; RESP 16; TEMP 36.6; O2SAT 97; BMI 26.6
== END 2024-08-31 12:18 | disposition home or self-care (01) ==
PROVIDERS: PCP Family Medicine; Visit Provider Family Medicine
DX: I10 Essential (primary) hypertension (principal); R73.03 Prediabetes

== ENCOUNTER → 2024-08-31 11:22 | Outpatient (BNVA) | payer MEDICARE, BC, SELFPAY | PROVIDERS: PCP Family Medicine; Visit Provider Family Medicine | DX: I10 Essential (primary) hypertension (principal); R73.03 Prediabetes; Z79.899 Other long term (current) drug therapy | CPT/HCPCS: 83036; 96127; 99212 ==

== ENCOUNTER 2024-10-15 13:29 | Outpatient (AMB) | payer MEDICARE, BC, SELFPAY ==
[2024-10-15 13:45] VITALS: BP 120/76; PULSE 48; BMI 26.6
--- NOTE | 2024-10-15 13:45 | MHC.OFFVIS ---
Vital Signs 10/15/24 13:45 Height 5 ft 10 in Weight 185 lb 3.013 oz BMI 26.6 BP 120/76 Blood Pressure Location Lt brachial Position Sitting Pulse 48 L Intake Visit Reasons: r/s 09/07/24 followup after CTA Intake Note: Follow-up after CTA feeling good does get dizzy with Metoprolol Snow Maker Required: No Allergies No Known Allergies [No Known Allergies*] Allergy (Verified 08/31/24 11:59) bee stings Allergy (Intermediate, Uncoded 12/02/23 09:14) swelling Medication List - Last Reconciled 10/15/24 by Bharat Callahan MD aspirin (Adult Aspirin Regimen) 81 mg PO DAILY atorvastatin 40 mg PO DAILY epinephrine (EpiPen 2-Bandar) 0.3 mg (0.3 mL) IM Q10M PRN ezetimibe 10 mg PO DAILY fluticasone propionate 50 mcg/actuation (Flonase Allergy Relief) 1 spray intranasal Q12H 30 days hydrochlorothiazide 12.5 mg (1/2 x 25 mg) PO QAM 90 days irbesartan 150 mg PO DAILY 90 days metoprolol succinate ER (Toprol XL) 12.5 mg PO DAILY omeprazole 20 mg PO DAILY 90 days sildenafil 100 mg PO DAILY PRN 30 days HPI Comments Details: Carson comes for follow-up after recent coronary CTA after abnormal stress test. This shows nonobstructive [id number] disease, with diffuse atherosclerosis all 3 coronary arteries. He said he continues to walk 3-4 miles every day including in cold weather without any symptoms of angina. He does complain of orthostatic lightheadedness especially when he rome over and stands up or when he gets up quickly in the morning hours. He has not had any syncopal episodes. Noticed to have low heart rate in his metoprolol was reduced to 12.5 mg daily. He denies any heart failure symptoms. COUNT INCLUDES [facility] Medical History Sinus bradycardia Arthritis History of heartburn Elevated cholesterol CAD (coronary artery disease) Diet-controlled type 2 diabetes mellitus Myocardial infarction HTN (hypertension) Surgical History Stented coronary artery History of breast lump/mass excision Hx of tonsillectomy History of bilateral cataract extraction Hx of colonoscopy Family History Father CAD (coronary artery disease) Myocardial infarction Diabetes mellitus Mother Diabetes mellitus COPD (chronic obstructive pulmonary disease) Brother Alcoholism Substance abuse Son No problems noted. Son Lyme disease Social History Household Members: Spouse Both parents involved: No Caregiver staying overnight: No Housing: House Are you a primary child care center administrator to a significant other at home: No Do you presently have visiting nurse or other home services: No 75 years or older and lives alone: No Alcohol intake: current Alcohol intake frequency: holidays/special occasions only Alcohol type: beer Patient Tobacco Use Status: Former Tobacco user Tobacco use type: Cigarette e-Cigarette/Vaping Use: Never Used Second Hand Smoke Exposure: No service: No Current occupational status: retired Current occupational exposures/hazards: No Sexual orientation: Straight/Heterosexual Gender identity: Male Cognitive needs: No Hearing needs: Yes Vision needs: No Review of Systems Const Denies chills, Denies fatigue, Denies fever(s), Denies frequent falls, Denies weakness, Denies weight gain and Denies weight loss ENT Denies dizziness Card Denies chest pain, Denies leg edema, Denies lightheadedness, Denies palpitations, Denies dyspnea, Denies dyspnea on exertion, Denies orthopnea and Denies other (loss of consciousness) Resp Denies cough, Denies dyspnea and Denies dyspnea on exertion GI Denies hematochezia and Denies change in stool character Musc Denies abnormal gait, Denies muscle weakness, Denies numbness, Denies radiating pain into limb and Denies tingling Neuro Denies abnormal gait, Denies dizziness, Denies frequent falls, Denies numbness, Denies tingling and Denies weakness Endo Denies fatigue and Denies palpitations Physical Exam Vital Signs: Last Vital Signs Pulse 48 L 10/15/24 13:45 BP 120/76 10/15/24 13:45 BMI result Body Mass Index 26.6 Const General: cooperative, comfortable, no acute distress, well developed, alert, awake and well groomed Nutritional Appearance: average body habitus Orientation/consciousness: patient oriented x3 Limitations: no limitations Neck Neck: Yes trachea midline, Yes supple and Yes no JVD Carotids: no bruits Resp Effort & Inspection: normal respiratory effort Auscultation: clear to auscultation bilaterally Cardio Jugular venous distension: no JVD Palpation: normal PMI Rate: regular rate Rhythm: regular rhythm Heart sounds: S1 normal heart sound present and S2 normal heart sound present Peripheral pulses: Peripheral pulses 2+ throughout GI Auscultation: normal bowel sounds Skin General skin exam: no rashes or lesions noted Neuro General: patient oriented x3 and no focal motor deficits Extrem General: Yes no clubbing, cyanosis or edema Psych Appearance: grossly normal Office Procedures EKG Details: EKG shows marked sinus bradycardia with T-wave inversion in lead 3 and AVF [id number], Complete Assessment & Plan Assessment & Plan (1) CAD (coronary artery disease): Comment: Sees Dr Callahan Code(s): I25.10 - Atherosclerotic heart disease of [place] coronary artery without angina pectoris Category: Medical Plan: Diffuse nonobstructive CAD in all 3 coronary segments with prior stent in the LAD which is patent. Continue aggressive medical therapy. Continue low-dose aspirin therapy. Continue high-intensity statin therapy with ezetimibe with target goal LDL closer to 55 mg/dL. Blood pressure is well optimized and may be over corrected. See below for management. Advised to monitor blood pressure at home maintain a log. Goal blood pressure less than 130/84. Encouraged to maintain activity level as tolerated. (2) Sinus bradycardia: Code(s): R00.1 - Bradycardia, unspecified Category: Medical Plan: Sinus bradycardia which is persistent suggestive of sinoatrial aaliyah dysfunction. May contribute to symptoms of orthostatic lightheadedness. Advised to discontinue metoprolol therapy. He had good chronotropic competence on recent stress test and I do not think there is indication for pacing therapy at this point time. May need pacing therapy in the future and was discussed with him. Advise rate lowering medications in the future. (3) Orthostatic lightheadedness: Code(s): R42 - Dizziness and giddiness Plan: Orthostatic lightheadedness, pathophysiology was discussed advised to maintain adequate hydration. Will discontinue metoprolol therapy as above. Orthostatic precautions were discussed. No alternatives required. May need to discontinue hydrochlorothiazide if he continues to have significant orthostatic symptoms. Follow up in the clinic in 6 months time, sooner p.r.n.. Thank you for allowing me to partake in his care Coding Level of Care Code Est Pt Level 4 (20535) Complex EM visit Add On G2211 Diagnoses CAD (coronary artery disease) I25.10 Sinus bradycardia R00.1 Orthostatic lightheadedness R42 CPT Codes EKG - CPT: [id number], Complete ([id number])
== END 2024-10-15 14:49 | disposition home or self-care (01) ==
PROVIDERS: PCP Family Medicine; Visit Provider Internal Medicine Cardiovascular Disease
DX: I25.10 Atherosclerotic heart disease of native coronary artery without angina pectoris (principal); R00.1 Bradycardia, unspecified; R42 Dizziness and giddiness
CPT/HCPCS: 93010; 99214; G2211

== ENCOUNTER → 2024-10-15 13:29 | Outpatient (BNVA) | payer MEDICARE, BC, SELFPAY | PROVIDERS: PCP Family Medicine; Visit Provider Internal Medicine Cardiovascular Disease | DX: I25.10 Atherosclerotic heart disease of native coronary artery without angina pectoris (principal); R00.1 Bradycardia, unspecified; R42 Dizziness and giddiness | CPT/HCPCS: 93005; 99212 ==

== ENCOUNTER 2024-12-03 08:23 | Outpatient (AMB) | payer MEDICARE, BC, SELFPAY ==
--- NOTE | 2024-12-03 08:29 | MHC.PC.OV ---
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 A1c?climbed?from?5.7%?to?6.1% He?is?still?working?on?a?diet?low?in?sugars?and?starches?and?he?is?walking?every?day Blood?pressure?is?again?a?little?104/62?and?heart?rate?is?improved?though?still?a?little?low?at?55?despite?decreasing?metoprolol?and?then?it?was?discontinued?altogether?by?Cardiology. Patient?also?notes?he?is?still?a?little?lightheaded?when?he?bends?down?then?stands?up?quickly. He?is?taking?hydrochlorothiazide?12.5?mg?daily Patient?also?notes?bilateral?knee?pain,?R?worse?than?L?with?some?crepitus/correction?and?some?instability. [facility] Medical History Sinus bradycardia Arthritis History of heartburn Elevated cholesterol CAD (coronary artery disease) Diet-controlled type 2 diabetes mellitus Myocardial infarction HTN (hypertension) Surgical History Stented coronary artery History of breast lump/mass excision Hx of tonsillectomy History of bilateral cataract extraction Hx of colonoscopy Family History Father CAD (coronary artery disease) Myocardial infarction Diabetes mellitus Mother Diabetes mellitus COPD (chronic obstructive pulmonary disease) Brother Alcoholism Substance abuse Son No problems noted. Son Lyme disease Social History Household Members: Spouse Both parents involved: No Caregiver staying overnight: No Housing: House Are you a primary child care provider to a significant other at home: No Do you presently have visiting nurse or other home services: No 75 years or older and lives alone: No Alcohol intake: current Alcohol intake frequency: holidays/special occasions only Alcohol type: beer Patient Tobacco Use Status: Former Tobacco user Tobacco use type: Cigarette e-Cigarette/Vaping Use: Never Used Second Hand Smoke Exposure: No service: No Current occupational status: retired Current occupational exposures/hazards: No Sexual orientation: Straight/Heterosexual Gender identity: Male Cognitive needs: No Hearing needs: Yes Vision needs: No Questionnaire PHQ-9 Over the last 2 weeks, how often have you been bothered by any of the following problems? 1. Little interest or pleasure in doing things: not at all 2. Feeling down, depressed, or hopeless: not at all 3. Trouble falling or staying asleep, or sleeping too much: not at all 4. Feeling tired or having little energy: not at all 5. Poor appetite or overeating: not at all 6. Feeling bad about yourself - or that you are a failure or have let yourself or your family down: not at all 7. Trouble concentrating on things, such as reading the newspaper or watching television: not at all 8. Moving or speaking so slowly that other people could have noticed. Or the opposite - being so fidgety or restless that you have been moving around a lot more than usual: not at all 9. Thoughts that you would be better off or of hurting yourself in some way: not at all Total score: 0 Depression Screening Interpretation: Negative Depression Screening Done: Yes 71564 - PHQ-9 Billing: Yes Source: Developed by Drs. Richie Mead, Rizwana Sifuentes, Stanley Manrique and colleagues, with an educational jocelyn from [employer]. Thrive Questionnaire Date Thrive assessed: 11/26/24 I am a: Patient What is your living situation today?: I have a steady place to live Within the past 12 months, did the food you bought not last and you didn't have the money to get more?: Never true Within the past 12 months, did you worry whether your food would run out before you got money to buy more?: Never true Do you have trouble paying for medicines?: No Do you have trouble getting transportation to medical appointments?: No Do you have trouble paying your heating and electricity bill?: No Do you have trouble taking care of your child, family member or friend?: No Do you have trouble with day-to-day activities such as bathing, preparing meals, shopping, managing finances, etc.?: No Are you currently unemployed and looking for a job?: No Are you interested in more education?: No Please select the resources that you would like help with: None Currently or been in a relationship where the following occur: No concerns reported THRIVE Score: 0 AUDIT C Alcohol Use Questionnaire (AUDIT-C) 1. How often do you have a drink containing alcohol?: 2-4 times a month 2. How many drinks containing alcohol do you have on a typical day when you are drinking?: 1 or 2 3. How often do you have six or more drinks on one occasion?: Never Total Score: 2 GERRI-7 AMB Questionnaire GERRI-7 Date GERRI - 7 assessed: 12/02/23 Feeling nervous, anxious, or on edge: 0 = Not at all Not being able to stop or control worryin = Not at all Worrying too much about different things: 0 = Not at all Trouble relaxin = Not at all Being so restless that it is hard to sit still: 0 = Not at all Becoming easily annoyed or irritable: 0 = Not at all Feeling afraid as if something awful might happen: 0 = Not at all Total GERRI-7 score (0-4 normal; 5-9 mild; 10-14 moderate; 15-21 severe): 0 Source: Developed by Drs. Richie Mead, Rizwana Sifuentes, Stanley Manrique and colleagues, with an educational jocelyn from [employer]. Review of Systems Const Denies chills, Denies fatigue, Denies fever(s), Denies headache(s) and Denies weakness ENT Denies dizziness and Denies headache(s) Card Denies chest pain, Denies lightheadedness, Denies dyspnea and Denies other (Palpitations) Resp Denies cough, Denies dyspnea, Denies wheezing and Denies other ( shortness of breath) Musc Details: Bilateral?knee?pain/discomfort,?right?worse?than?left Denies numbness and Denies tingling Neuro Denies dizziness, Denies headache(s), Denies numbness, Denies tingling, Denies paresthesias and Denies weakness Psych Denies anxiety and Denies depression Endo Denies fatigue Aller/Immun Denies wheezing Physical exam (Primary Care) Vital Signs: Last Vital Signs Temp 98.0 F 12/03/24 08:36 Pulse 55 12/03/24 08:36 Resp 12 12/03/24 08:36 BP 104/62 12/03/24 08:36 Pulse Ox 94 12/03/24 08:36 Oxygen Delivery Method Room Air 12/03/24 08:36 BMI result Body Mass Index 26.8 Tobacco/Smoking Status: Tobacco use Status Tobacco use date assessed 10/02/23 12/03/24 08:30 Patient Tobacco Use Status Former Tobacco user 12/03/24 08:30 Tobacco use type Cigarette 12/03/24 08:30 e-Cigarette/Vaping Use Never Used 12/03/24 08:30 PHQ-9: PHQ-9 Score PHQ-9: Total score 0 12/03/24 08:30 Depression Screening Interpretation: Negative Thrive Assessment: Date of Thrive Assessment Date Thrive assessed 11/26/24 12/03/24 08:30 Currently or been in a relationship where the following occur: No concerns reported Const General: no acute distress and well developed Nutritional Appearance: well nourished Orientation/consciousness: patient oriented x3 [facility] Head: Yes normocephalic and Yes atraumatic Eyes General: appearance normal, both eyes and all related structures Pupils: Equal, round and reactive pupils present EOM: EOMs intact bilaterally Resp Effort & Inspection: normal respiratory effort Auscultation: clear to auscultation bilaterally Cardio Rate: regular rate Rhythm: regular rhythm Heart sounds: S1 normal heart sound present, S2 normal heart sound present, no gallops, no murmurs and no rubs Neuro General: patient oriented x3 and gait normal Cranial nerves: Yes Equal, round and reactive pupils present Extrem Other: Normal?range?of?motion?for?bilateral?knees.??Right?knee?with?mild?crepitus?some?cracking?sounds. No?joint?space?tenderness?or?swelling. Psych Affect: normal affect Results AMB Hemoglobin A1c AMB Hemoglobin A1c 6.1 % Last Edit by CASSANDRA Mcneal on 12/03/24 08:43 Results Reviewed Results Reviewed: Laboratory Last Values Hgb A1c (Clinic) 6.1 % (4.0-6.0) H 12/03/24 08:39 Coding Level of Care Code Est Pt Level 4 (81850) Diagnoses Essential hypertension I10 CAD (coronary artery disease) I25.10 Pre-diabetes R73.03 Knee pain M25.569 Additional Codes PHQ-9 - 46178 - PHQ-9 Billing: Yes ([id number]) Assessment & Plan Assessment & Plan (1) Essential hypertension: Code(s): I10 - Essential (primary) hypertension Category: Medical Plan: Blood?pressure?is?a?little?low?again. Patient?is?taking?12.5?mg?hydrochlorothiazide.??He?notes?he?still?has?a?little?bit?of?lightheadedness. Changing?to?6.25?mg?b.i.d.?and?may?discontinue?1?or?both?of?these?doses?if?he?continues?to?have?lightheadedness?urine?low?blood?pressures. Hydrate?well (2) CAD (coronary artery disease): Comment: Sees Dr Callahan Code(s): I25.10 - Atherosclerotic heart disease of [place] coronary artery without angina pectoris Category: Medical Plan: Stable Follow-up?with?Cardiology?as?recommended Ongoing?bradycardia?though?improved?off?of?metoprolol. Briefly?discussed?patient?may?need?pacer?in?the?future?and?he?understands?this?from?his?discussion?with?Cardiology. (3) Pre-diabetes: Code(s): R73.03 - Prediabetes Category: Medical Plan: A1c?climbed?to?6.1%. Encouraged?further?work?at?decreasing?sugars?and?starches?in?diet Continue?walks?in?weight?control Will?continue?to?monitor (4) Knee pain: Code(s): M25.569 - Pain in unspecified knee Category: Medical Plan: Bilateral?knee?pain,?right?worse?than?left.??Some?mild?instability Will?check?x-rays Referred?for?physical?therapy Ice/heat Tylenol If?worsening?or?not?improving,?would?refer?to?Ortho. Orders: Orders AMB Hemoglobin A1c Today R73.03 - Prediabetes XR knee LT 2V Today M25.569 - Pain in unspecified knee XR knee RT 2V Today M25.569 - Pain in unspecified knee PT Evaluation and Treatment Today M25.569 - Pain in unspecified knee Medications: Changed From hydrochlorothiazide 12.5 mg (1/2 x 25 mg) PO QAM 90 days 45 tabs 0RF To hydrochlorothiazide 6.25 mg (1/2 x 12.5 mg) PO BID 90 days 90 tabs 2RF
[2024-12-03 08:36] VITALS: BP 104/62; PULSE 55; RESP 12; TEMP 36.7; O2SAT 94; BMI 26.8
== END 2024-12-03 09:03 | disposition home or self-care (01) ==
LOC: HO.HMCFM 08:24
PROVIDERS: PCP Family Medicine; Visit Provider Family Medicine
DX: I10 Essential (primary) hypertension (principal); I25.10 Atherosclerotic heart disease of native coronary artery without angina pectoris; R73.03 Prediabetes; M25.569 Pain in unspecified knee

== ENCOUNTER → 2024-12-03 08:23 | Outpatient (BNVA) | payer MEDICARE, BC, SELFPAY | PROVIDERS: PCP Family Medicine; Visit Provider Family Medicine | DX: I10 Essential (primary) hypertension (principal); I25.10 Atherosclerotic heart disease of native coronary artery without angina pectoris; R73.03 Prediabetes; M25.561 Pain in right knee; M25.562 Pain in left knee | CPT/HCPCS: 83036; 96127; 99212 ==

== ENCOUNTER 2024-12-04 10:51 | Outpatient (REF) | payer MEDICARE, BC, SELFPAY ==
--- NOTE | ~2024-12-04 | XR_ITS ---
EXAMINATION: XR KNEE, LEFT CLINICAL INFORMATION: M25.569 - Pain in unspecified knee COMPARISON: None available. TECHNIQUE: Two views of the left knee. FINDINGS: Mild asymmetric joint space narrowing involving the medial compartment. No acute cortical disruption or malalignment. No suprapatellar bursa joint effusion. No lytic or blastic lesions. Vascular calcifications.. XR/XR knee LT 2V IMPRESSION: Mild osteoarthrosis, medial compartment, left knee. Atherosclerosis disease, peripheral.. Electronically signed by: Yonas Chandler MD 12/07/2024 08:46 AM EDT
--- NOTE | ~2024-12-04 | XR_ITS ---
EXAMINATION: XR KNEE, RIGHT CLINICAL INFORMATION: M25.569 - Pain in unspecified knee COMPARISON: None available. TECHNIQUE: Two views of the right knee. FINDINGS: Mild asymmetric joint space narrowing. Sclerosis of the articular surface medial tibial plateau. No acute cortical disruption or malalignment. No lytic or blastic lesions. No suprapatellar bursa joint effusion. Vascular calcifications. XR/XR knee RT 2V IMPRESSION: Mild medial compartment osteoarthrosis, right knee. Atherosclerosis disease, peripheral. Electronically signed by: Yonas Chandler MD 12/07/2024 08:47 AM EDT
== END 2024-12-04 10:52 | disposition home or self-care (01) ==
LOC: HO.XRAY 10:51
PROVIDERS: PCP Family Medicine; Visit Provider Family Medicine
DX: M25.562 Pain in left knee (principal); M25.561 Pain in right knee
CPT/HCPCS: 73560

== ENCOUNTER → 2024-12-04 10:55 | Outpatient (BNV) | payer MEDICARE, BC, SELFPAY | PROVIDERS: PCP Family Medicine; Visit Provider Radiology Diagnostic Radiology | DX: I70.213 Atherosclerosis of native arteries of extremities with intermittent claudication, bilateral legs (principal) | CPT/HCPCS: 73560 ==

== ENCOUNTER 2025-02-23 14:56 | Outpatient (AMB) | payer MEDICARE, BC, SELFPAY ==
--- NOTE | 2025-02-23 15:23 | A.OFFVIS_ITS ---
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 Allergies No Known Allergies [No Known Allergies*] Allergy (Verified 08/31/24 11:59) bee stings Allergy (Intermediate, Uncoded 12/02/23 09:14) swelling Medication List - Last Reconciled 02/23/25 by Bharat Callahan MD aspirin (Adult Aspirin Regimen) 81 mg PO DAILY atorvastatin 40 mg PO DAILY epinephrine (EpiPen 2-Bandar) 0.3 mg (0.3 mL) IM Q10M PRN ezetimibe 10 mg PO DAILY fluticasone propionate 50 mcg/actuation (Flonase Allergy Relief) 1 spray intranasal Q12H 30 days hydrochlorothiazide 6.25 mg (1/2 x 12.5 mg) PO BID 90 days irbesartan 150 mg PO DAILY 90 days omeprazole 20 mg PO DAILY 90 days sildenafil 100 mg PO DAILY PRN 30 days HPI Comments Details: Amira comes for follow-up. He has been doing very well from cardiac perspective. He has symptoms of lightheadedness have improved since stopping metoprolol. He continues to play 18 holes of golf. He denies any symptoms exertional chest pain or shortness of breath. He does complain of significant cramping which has improved after improving his electrolyte intake. He is also currently participate in some stretching exercises. Denies any claudication like symptoms. No orthopnea, PND, leg edema. No prolonged palpitation irregular heartbeat. Takes all his medications. [facility] Medical History Sinus bradycardia Arthritis History of heartburn Elevated cholesterol CAD (coronary artery disease) Diet-controlled type 2 diabetes mellitus Myocardial infarction HTN (hypertension) Surgical History Stented coronary artery History of breast lump/mass excision Hx of tonsillectomy History of bilateral cataract extraction Hx of colonoscopy Family History Father CAD (coronary artery disease) Myocardial infarction Diabetes mellitus Mother Diabetes mellitus COPD (chronic obstructive pulmonary disease) Brother Alcoholism Substance abuse Son No problems noted. Son Lyme disease Social History Household Members: Spouse Both parents involved: No Caregiver staying overnight: No Housing: House Are you a primary care aide to a significant other at home: No Do you presently have visiting nurse or other home services: No 75 years or older and lives alone: No Alcohol intake: current Alcohol intake frequency: holidays/special occasions only Alcohol type: beer Patient Tobacco Use Status: Former Tobacco user Tobacco use type: Cigarette e-Cigarette/Vaping Use: Never Used Second Hand Smoke Exposure: No service: No Current occupational status: retired Current occupational exposures/hazards: No Sexual orientation: Straight/Heterosexual Gender identity: Male Cognitive needs: No Hearing needs: Yes Vision needs: No Review of Systems Const Denies chills, Denies fatigue, Denies fever(s), Denies frequent falls, Denies weakness, Denies weight gain and Denies weight loss ENT Denies dizziness Card Denies chest pain, Denies leg edema, Denies lightheadedness, Denies palpitations, Denies dyspnea, Denies dyspnea on exertion, Denies orthopnea and Denies other (loss of consciousness) Resp Denies cough, Denies dyspnea and Denies dyspnea on exertion GI Denies hematochezia and Denies change in stool character Musc Denies abnormal gait, Denies muscle weakness, Denies numbness, Denies radiating pain into limb and Denies tingling Neuro Denies abnormal gait, Denies dizziness, Denies frequent falls, Denies numbness, Denies tingling and Denies weakness Endo Denies fatigue and Denies palpitations Physical Exam Vital Signs: Last Vital Signs Pulse 56 02/23/25 15:24 BP 120/80 02/23/25 15:24 BMI result Body Mass Index 26.9 Const General: cooperative, comfortable, no acute distress, well developed, alert, awake and well groomed Nutritional Appearance: average body habitus Orientation/consciousness: patient oriented x3 Limitations: no limitations Neck Neck: Yes trachea midline, Yes supple and Yes no JVD Carotids: no bruits Resp Effort & Inspection: normal respiratory effort Auscultation: clear to auscultation bilaterally Cardio Jugular venous distension: no JVD Palpation: normal PMI Rate: regular rate Rhythm: regular rhythm Heart sounds: S1 normal heart sound present and S2 normal heart sound present Peripheral pulses: Peripheral pulses 2+ throughout GI Auscultation: normal bowel sounds Skin General skin exam: no rashes or lesions noted Neuro General: patient oriented x3 and no focal motor deficits Extrem General: Yes no clubbing, cyanosis or edema Psych Appearance: grossly normal Assessment & Plan Assessment & Plan (1) CAD (coronary artery disease): Comment: Sees Dr Callahan Code(s): I25.10 - Atherosclerotic heart disease of [place] coronary artery without angina pectoris Category: Medical Plan: Diffuse coronary artery disease brought prior stenting of the LAD for acute coronary syndrome. No recurrent symptoms suggestive of angina. Continue aggressive medical therapy. Continue lifelong aspirin therapy. Continue high- intensity statin therapy along with ezetimibe therapy. Target goal LDL less than 55 mg/dL. Advised lipid panel and CRP in near future. Continue maintain activity level as tolerated. Advised to call me with any exertional symptoms or any other symptoms. (2) Essential hypertension: Code(s): I10 - Essential (primary) hypertension Category: Medical Plan: Hypertension which is currently well optimized on current therapy. He is no longer having episodes of orthostatic lightheadedness since stopping metoprolol. Continue the same. Advised to maintain adequate hydration. Orthostatic precautions were discussed. Continue also current low-dose hydrochlorothiazide therapy. Low-salt diet was recommended when he is not heavily exercising. Continue maintain aerobic activity as tolerated. Follow up in the clinic in 1 year's time, sooner p.r.n.. Thank you for allowing me to partake in his care Orders: Orders Lipid Panel Today I25.10 - Atherosclerotic heart disease of [place] coronary artery without angina pectoris CRP High Sensitivity Today E78.5 - Hyperlipidemia, unspecified, I25.10 - Atherosclerotic heart disease of [place] coronary artery without angina pectoris Coding Level of Care Code Est Pt Level 4 (75142) Complex EM visit Add On G2211 Diagnoses CAD (coronary artery disease) I25.10 Essential hypertension I10
[2025-02-23 15:24] VITALS: BP 120/80; PULSE 56; BMI 26.9
== END 2025-02-23 15:41 | disposition home or self-care (01) ==
LOC: HO.HCS 14:57
PROVIDERS: PCP Family Medicine; Visit Provider Internal Medicine Cardiovascular Disease
DX: I25.10 Atherosclerotic heart disease of native coronary artery without angina pectoris (principal); I10 Essential (primary) hypertension
CPT/HCPCS: 99214; G2211

== ENCOUNTER → 2025-02-23 14:56 | Outpatient (BNVA) | payer MEDICARE, BC, SELFPAY | PROVIDERS: PCP Family Medicine; Visit Provider Internal Medicine Cardiovascular Disease | DX: I25.10 Atherosclerotic heart disease of native coronary artery without angina pectoris (principal); I10 Essential (primary) hypertension | CPT/HCPCS: 99212 ==

== ENCOUNTER 2025-03-09 06:05 | Outpatient (REF) | payer MEDICARE, BC, SELFPAY ==
--- OUTSIDE RECORDS SUMMARY | 2025-03-09 06:08 | XMS_ITS | Patient Health Record ---
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 Name Role Phone Amado Carrillo Primary Care Provider Unavailab Richie Severino Unavailable [phone] Reason For Referral No Information Medications Medication SIG (Take, Route, Frequency, Duration) Notes Start Date End Date Status Atorvastatin Calcium 40 MG 1 tablet Orally Once a day Active Irbesartan 150 MG 1 tablet Orally Once a day Active Aspir-81 81mg ONCE A DAY Activ e PriLOSEC OTC 20 MG 1 tablet Orally Once a day Takes twice a week Not-Taking Zetia 10 MG 1 tablet Orally Once a day for 30 day(s) Active Brilinta 90mg Not-Ta raj Immunizations Vaccine Route Administration Date Status Comme nts Flu vaccine no Preserv 3 and > Unknown 06/30/2014 Admin istered Influenza Unknown 05/17/2020 Administered Problems Problem Type SNOMED Code ICD Code Onset Dates Problem Status W/U Status Risk Notes Problem 580668174 Encounter for screening for malignant neoplasm of colon (Z12.11) Active confirmed Problem 107167210 History of adenomatous polyp of colon (Z86.010) Active confirmed Problem [id number] Preprocedural examination (Z01.818) Active confirmed Problem [id number] Encounter for long-term (current) aspirin use (Z79.82) Active confirmed Plan Of Treatment Future Test Test Name Order Date COLONOSCOPY 12/16/2014 COLONOSCOPY 06/07/2020 Insurance Providers Payer Name Payer Address Payer Phone Subscriber Number Group Number Insured Name Patient Relationship to Insured Coverage Start Date Coverage End Date MEDICARE OF [place] [address] [place] [id number] ANDREY BAJWA Self - patient is the insured [facility] [address] [place], [place] [id number] ANDREY BAJWA Self - patient is the insured Medical (General) History Medical History History ICD Code colonoscopy 08/05/2008--neg except for diverticulosis andinternal hemorrhoids Tubular adenoma [place] [address] Kalli jaeger hypertension Diet controlled DM--had previously been on oral meds HI 10/03/2013--had 1 stent put in-Dr. Jamar curtis Denies CVA,Lung disease,renal disease Colonoscopy in 02/2015 with removal of a small tubular adenoma Surgical History Surgery Date(Month/Year) tonsillectomy cyst removed from back benign tumor removed from breast-left bilateral cataracts 2019
[2025-03-09 08:00] LABS: Cholesterol 113 mg/dL (<200); HDL Cholesterol 63 mg/dL (>40); LDL Cholesterol Calculated 43 mg/dL (<100); Triglycerides 37 mg/dL (<150)
[2025-03-11 10:43] LABS: CRP High Sensitivity <0.2 mg/L
== END 2025-03-09 06:06 | disposition home or self-care (01) ==
LOC: HO.LAB 06:05
PROVIDERS: PCP Family Medicine; Visit Provider Internal Medicine Cardiovascular Disease
DX: E78.5 Hyperlipidemia, unspecified (principal); I25.10 Atherosclerotic heart disease of native coronary artery without angina pectoris
CPT/HCPCS: 36415; 80061; 86141

== ENCOUNTER 2025-03-18 07:57 | Outpatient (RCR) | payer MEDICARE, BC, SELFPAY ==
--- NOTE | 2025-02-11 12:43 | MHC.PT.EP ---
[facility] Office [place] Office [place] Office [address] [phone] F: [phone] F: [phone] F: [phone] F: [phone] Physical Therapy Plan of Care Date of Evaluation: 02/11/25 Date of Surgery: Diagnosis: pain in unspecified knee B knee pain R worse than L Assessment: 74 y/o male referred to PT with B knee pain (R worse than L). Currently reports pain and difficulty with getting out of a squat position, getting up off the floor, and kneeling on R knee. 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 Currently he presents with knee ROM 0-140 B, hyperflexible HS, decreased piriformis length on L, impaired squat mechanics, hypomobile R patella mobility, and decreased hip strength. Recommend PT 1x/week for 5 weeks to address impairments, implement HEP, and optimize functional mobility. Frequency and Duration: The patient will be seen 1x/week for 5 weeks Short Term Goals: 3 weeks I with HEP Penitentiary Goals: 5 weeks I with HEP and self management of sx Pt will demonstrate proper squat mechanics 10/10x with pain < 3/10 Pt will be able to get up off floor with knee pain < 3/10 Treatment Plan: Modalities to reduce pain, spasms and effusion. Manual therapy to restore motion and function. Therapeutic exercise to improve strength and flexibility. Neuromuscular re-education for posture and balance. Therapeutic activities to return to functional activities of daily living. Electronically signed by: Alyson Madrigal PT Please sign and return to therapist. Thank you for your referral.
--- NOTE | 2025-04-20 14:02 | MHC.PT.DC ---
[facility] [place] Office [place] Office [place] Office [address] [phone] F: [phone] F: [phone] F: [phone] F: [phone] Physical Therapy Discharge Report Diagnosis: pain in unspecified knee B knee pain R worse than L Date of Surgery: Date of Evaluation: 02/11/25 Date of Discharge: 04/20/25 Treatments to Date: 6 Cancellations to Date: 0 No Shows to Date: 0 Discharge Status: Improved Function Independent with HEP Discharge Summary: Pt has made good progress with PT with less pain however still difficulty with kneeling. He did have some associated LBP and was given some exercises for this as well. At this time, d/c to I HEP Electronically signed by: Alyson Madrigal PT Please sign and return to therapist. Thank you for your referral.
== END 2025-04-20 14:02 | disposition home or self-care (01) ==
LOC: HO.PT 07:57
PROVIDERS: PCP Family Medicine; Visit Provider Family Medicine
DX: M25.561 Pain in right knee (principal); M25.562 Pain in left knee
CPT/HCPCS: 97110; 97161; 97530

== ENCOUNTER 2025-05-25 11:39 | Outpatient (AMB) | payer MEDICARE, BC, SELFPAY ==
--- NOTE | 2025-05-25 11:47 | MHC.PC.OV ---
Vital Signs 05/25/25 11:58 Height 5 ft 10 in Weight 179 lb 4 oz BMI 25.7 BP 120/78 Blood Pressure Location Lt brachial Position Sitting Respiration 12 Pulse 55 Pulse Source Pulse Oximeter Temp 97.3 F Temp Source Temporal Artery Scan Pulse Oximetry (%) 96 Oxygen Delivery Method Room Air Intake Visit Reasons: follow-up hypertension and pre diabetes /A1C Intake Note: Sky presents in the office today for a follow up to hypertension and Prediabetes. Allergies No Known Allergies (No Known Allergies*) Allergy (Verified 08/31/24 11:59) bee stings Allergy (Intermediate, Uncoded 05/25/25 11:56) swelling Tobacco use date assessed: 05/25/25 Fall risk assessment: No Falls in past year Last assessed Fall Risk: 05/25/25 Dental Screening Dental Screen Date: 05/25/25 Did you have a dental visit in the last 12 months?: Yes Did you have a dental problem in the last 6 months where you did not have access to dental care?: No Was dental information given to patient?: Patient has dentist HPI follow-up hypertension and pre diabetes /A1C HPI Details 75 y/o male presents to f/u hypertension, pre-diabetes. A1c today 05/25/25 6.0%. Blood pressure today 120/78, 55p. He is on irbesartan 150mg, HCTZ 6.25mg b.i.d. Hx of CAD and has been following up with Cardiology. Last lipid panel drawn 03/09/25. Triglycerides 37. TC 113. LDL 43. HDL 63. Continues to keep himself active 3x a week. HPI Comments History of Present Illness Details Documentation assistance for Amado Carrillo MD, was provided by Evelio Kelly,? Viscosity Inspector on at 12:34 PM EST. I, Dr. Carrillo, have read, observed, and verified documentation. [facility] Medical History Sinus bradycardia Arthritis History of heartburn Elevated cholesterol CAD (coronary artery disease) Diet-controlled type 2 diabetes mellitus Myocardial infarction HTN (hypertension) Surgical History Stented coronary artery History of breast lump/mass excision Hx of tonsillectomy History of bilateral cataract extraction Hx of colonoscopy Family History Father CAD (coronary artery disease) Myocardial infarction Diabetes mellitus Mother Diabetes mellitus COPD (chronic obstructive pulmonary disease) Brother Alcoholism Substance abuse Son No problems noted. Son Lyme disease Social History (Updated 05/25/25 @ 11:58 by Yadi Baltazar MA) Household Members: Spouse Both parents involved: No Caregiver staying overnight: No Housing: House Are you a primary account executive healthcare to a significant other at home: No Do you presently have visiting nurse or other home services: No 75 years or older and lives alone: No Alcohol intake: current Alcohol intake frequency: holidays/special occasions only Alcohol type: beer Patient Tobacco Use Status: Former Tobacco user Tobacco use type: Cigarette e-Cigarette/Vaping Use: Never Used Second Hand Smoke Exposure: No Use of substances other than those prescribed or required for medical reasons: No service: No Current occupational status: retired Current occupational exposures/hazards: No Sexual orientation: Straight/Heterosexual Gender identity: Male Cognitive needs: No Hearing needs: Yes Vision needs: No Questionnaire Thrive Questionnaire Date Thrive assessed: 11/26/24 I am a: Patient What is your living situation today?: I have a steady place to live Within the past 12 months, did the food you bought not last and you didn't have the money to get more?: Never true Within the past 12 months, did you worry whether your food would run out before you got money to buy more?: Never true Do you have trouble paying for medicines?: No Do you have trouble getting transportation to medical appointments?: No Do you have trouble paying your heating and electricity bill?: No Do you have trouble taking care of your child, family member or friend?: No Do you have trouble with day-to-day activities such as bathing, preparing meals, shopping, managing finances, etc.?: No Are you currently unemployed and looking for a job?: No Are you interested in more education?: No Please select the resources that you would like help with: None Currently or been in a relationship where the following occur: No concerns reported THRIVE Score: 0 GERRI-7 AMB Questionnaire GERRI-7 Date GERRI - 7 assessed: 12/02/23 Source: Developed by Drs. Richie Mead, Rizwana Sifuentes, Stanley Manrique and colleagues, with an educational jocelyn from [employer]. Review of Systems Const Denies chills, Denies fatigue, Denies fever(s), Denies headache(s) and Denies weakness ENT Denies dizziness and Denies headache(s) Card Denies chest pain, Denies lightheadedness, Denies dyspnea and Denies other (Palpitations) Resp Denies cough, Denies dyspnea, Denies wheezing and Denies other ( shortness of breath) Musc Denies numbness and Denies tingling Neuro Denies dizziness, Denies headache(s), Denies numbness, Denies tingling, Denies paresthesias and Denies weakness Psych Denies anxiety and Denies depression Endo Denies fatigue Aller/Immun Denies wheezing Physical exam (Primary Care) Vital Signs: Last Vital Signs Temp 97.3 F 05/25/25 11:58 Pulse 55 05/25/25 11:58 Resp 12 05/25/25 11:58 BP 120/78 05/25/25 11:58 Pulse Ox 96 05/25/25 11:58 Oxygen Delivery Method Room Air 05/25/25 11:58 BMI result Body Mass Index 25.7 Tobacco/Smoking Status: Tobacco use Status Tobacco use date assessed 05/25/25 05/25/25 12:02 Patient Tobacco Use Status Former Tobacco user 05/25/25 11:58 Tobacco use type Cigarette 05/25/25 11:58 e-Cigarette/Vaping Use Never Used 05/25/25 11:58 Thrive Assessment: Date of Thrive Assessment Date Thrive assessed 11/26/24 05/25/25 11:49 Currently or been in a relationship where the following occur: No concerns reported Const General: no acute distress and well developed Nutritional Appearance: well nourished Orientation/consciousness: patient oriented x3 [facility] Head: Yes normocephalic and Yes atraumatic Eyes General: appearance normal, both eyes and all related structures Pupils: Equal, round and reactive pupils present EOM: EOMs intact bilaterally Resp Effort & Inspection: normal respiratory effort Auscultation: clear to auscultation bilaterally Cardio Rate: regular rate Rhythm: regular rhythm Heart sounds: S1 normal heart sound present, S2 normal heart sound present, no gallops, no murmurs and no rubs Neuro General: patient oriented x3 and gait normal Cranial nerves: Yes Equal, round and reactive pupils present Psych Affect: normal affect Results AMB Hemoglobin A1c AMB Hemoglobin A1c 6.0 % Last Edit by Yadi Baltazar MA on 05/25/25 12:10 Results Reviewed Results Reviewed: Laboratory Last Values Hgb A1c (Clinic) 6.0 % (4.0-6.0) 05/25/25 12:03 Coding Level of Care Code Est Pt Level 4 (92738) Diagnoses Pre-diabetes R73.03 Essential hypertension I10 CAD (coronary artery disease) I25.10 Hyperlipidemia E78.5 Assessment & Plan Assessment & Plan (1) Pre-diabetes: Code(s): R73.03 - Prediabetes Category: Medical Plan: A1c 6.0%; pre diabetes range and improved from November. Will continue to monitor Continue exercising and I encouraged a diet low in sugars and starches (2) Essential hypertension: Code(s): I10 - Essential (primary) hypertension Category: Medical Plan: Blood pressure is controlled. Goal is less than 130/80 Continue current medication regimen Continue exercise (3) CAD (coronary artery disease): Comment: Sees Dr Callahan Code(s): I25.10 - Atherosclerotic heart disease of [place] coronary artery without angina pectoris Category: Medical Plan: Followed by Dr. Callahan He continues aspirin and atorvastatin in +Zetia LDL goal is less than 55 and recent LDL was 43; good control Continue a diet low in saturated fats and cholesterol Continue exercise Maintain healthy blood pressure Follow-up with Cardiology as recommended Also, CRP was less than 0.2 on recent labs (4) Hyperlipidemia: Code(s): E78.5 - Hyperlipidemia, unspecified Category: Medical Plan: As above LDL cholesterol is well controlled on atorvastatin 40 mg daily and Zetia.. LDL Goal < 55 Continue current medication regimen Orders: Orders AMB Hemoglobin A1c Today R73.03 - Prediabetes Comprehensive [place]. Panel Fast Today Z00.00 - Encounter for general adult medical examination without abnormal findings Prostate Specific Antigen Scr Today Z12.5 - Encounter for screening for malignant neoplasm of prostate Lipid Panel Today Z00.00 - Encounter for general adult medical examination without abnormal findings TSH reflex Free T4 Today Z00.00 - Encounter for general adult medical examination without abnormal findings Complete Blood Count Auto Diff Today Z00.00 - Encounter for general adult medical examination without abnormal findings Microalbumin, Random (w Creat) Today I10 - Essential (primary) hypertension UA CC w/rflx Micro + Cult Today Z00.00 - Encounter for general adult medical examination without abnormal findings Hemoglobin A1c Today R73.01 - Impaired fasting glucose
[2025-05-25 11:58] VITALS: BP 120/78; PULSE 55; RESP 12; TEMP 36.3; O2SAT 96; BMI 25.7
--- OUTSIDE RECORDS SUMMARY | 2025-05-25 14:11 | XMS_ITS | Patient Health Record ---
Author Organization [facility] Address [address] [place] [address] Care Team Providers Care Mix House Tender Name Role Phone Amado Carrillo Primary Care Provider Unavailab Richie Severino Unavailable [phone] Reason For Referral No Information Medications Medication [...] Problem Status W/U Status Risk Notes Problem 377618741 Encounter for screening for malignant neoplasm of colon (Z12.11) Active confirmed Problem 023546683 History of adenomatous polyp of colon (Z86.010) Active confirmed Problem 835203573354950 Preprocedural examination (Z01.818) Active confirmed Problem [id number] Encounter for long-term (current) aspirin use (Z79.82) Active confirmed Plan Of Treatment Future Test Test Name Order Date COLONOSCOPY 12/16/2014 COLONOSCOPY 06/07/2020 Insurance Providers Payer Name Payer Address Payer Phone Subscriber Number Group Number Insured Name Patient Relationship to Insured Coverage Start Date Coverage End Date MEDICARE OF [place] [address] [place] [id number] ANDREY BAJWA Self - patient is the insured [facility] [address] [place], [place] [id number] [phone] [id number] ANDREY BAJWA Self - patient is the insured Medical (General) History Medical History History ICD Code colonoscopy 08/05/2008--neg except for diverticulosis andinternal hemorrhoids Tubular adenoma [place] [address] Kalli jaeger hypertension Diet controlled DM--had previously been on oral meds [place] 10/03/2013--had 1 stent put in-Dr. Jamar curtis Denies CVA,Lung disease,renal disease Colonoscopy in 02/2015 with removal of a small tubular adenoma Surgical History Surgery Date(Month/Year) tonsillectomy cyst removed from back benign tumor removed from breast-left bilateral cataracts 2019
== END 2025-05-25 13:06 | disposition home or self-care (01) ==
LOC: HO.HMCFM 11:39
PROVIDERS: PCP Family Medicine; Visit Provider Family Medicine
DX: R73.03 Prediabetes (principal); I10 Essential (primary) hypertension; I25.10 Atherosclerotic heart disease of native coronary artery without angina pectoris; E78.5 Hyperlipidemia, unspecified

== ENCOUNTER → 2025-05-25 11:39 | Outpatient (BNVA) | payer MEDICARE, BC, SELFPAY | PROVIDERS: PCP Family Medicine; Visit Provider Family Medicine | DX: I10 Essential (primary) hypertension (principal); R73.03 Prediabetes; I25.10 Atherosclerotic heart disease of native coronary artery without angina pectoris; E78.5 Hyperlipidemia, unspecified | CPT/HCPCS: 83036; 99212 ==

== ENCOUNTER 2025-07-26 06:10 | Outpatient (REF) | payer MEDICARE, BC, SELFPAY ==
--- OUTSIDE RECORDS SUMMARY | 2025-07-26 06:14 | XMS_ITS | Patient Health Record ---
Author Organization [facility] Address [address] [place] [address] Care Team Providers Care Enrobing Machine Corder Name Role Phone Amado Carrillo Primary Care Provider Unavailab Richie Severino Unavailable [phone] Reason For Referral No Information Medications Medication [...] 10 MG 1 tablet Orally Once a day; Duration: 30 day(s) Active Brilinta 90mg Not-Ta raj Immunizations Vaccine Route Administration Date Status Comme nts Flu vaccine no Preserv 3 and > Unknown 06/30/2014 Admin istered Influenza Unknown 05/17/2020 Administered Problems Problem Type SNOMED Code ICD Code Onset Dates Problem Status W/U Status Risk Notes Problem Screening for malignant neoplasm of colon (127316645) Encounter for screening for malignant neoplasm of colon (Z12.11) Active confirmed Problem History of adenomatous polyp of colon (433613721) History of adenomatous polyp of colon (Z86.010) Active confirmed Problem Preprocedural examination (576090460277566) Preprocedural examination (Z01.818) Active confirmed Problem Long-term current use of antiplatelet drug (055058620483563) Encounter for long-term (current) aspirin use (Z79.82) Active confirmed Plan Of Treatment Future Test Test Name Order Date COLONOSCOPY 12/16/2014 COLONOSCOPY 06/07/2020 Insurance Providers Payer Name Payer Address Payer Phone Subscriber Number Group Number Insured Name Patient Relationship to Insured Coverage Start Date Coverage End Date MEDICARE OF [place] [address] [place] [id number] ANDREY BAJWA Self - patient is the insured [facility] [address] [place], [place] [id number] CHARAN ANDREY Kruger Self - patient is the insured Medical (General) History Medical History History ICD Code colonoscopy 08/05/2008--neg except for diverticulosis andinternal hemorrhoids Tubular adenoma [place] [address] Kalli jaeger hypertension Diet controlled DM--had previously been on oral meds [place] 10/03/2013--had 1 stent put in-Dr. Jamar curtis Denies CVA,Lung disease,renal disease Colonoscopy in 02/2015 with removal of a small tubular adenoma Surgical History Surgery Date(Month/Year) tonsillectomy cyst removed from back benign tumor removed from breast-left bilateral cataracts 2019
[2025-07-26 06:37] LABS: MANUAL DIFF FLAG NO
[2025-07-26 07:34] LABS: Appearance Urine Clear; Glucose Urine UA Negative (Negative); PH 6.5 (5.0-9.0); Specific Gravity - Urine 1.025 (1.005-1.025)
[2025-07-26 07:50] LABS: Hematocrit 43.7 % (42.0-52.0); Hemoglobin 14.8 g/dl (14.0-18.0); Imm Gran Abs Auto 0.01 X10*3/uL (0.00-0.03); Imm Gran Pct Auto 0.2 % (0.0-0.4); Lymphocytes Absolute Auto 2.1 X10*3/uL (1.2-4.9); Mean Corpuscular HGB Conc 33.9 g/dl (31.0-36.0); Mean Corpuscular Hemoglobin 31.2 pg (27.0-33.0); Mean Corpuscular Volume 92.2 fL (80.0-98.0); NRBC Abs Auto 0.000 X10*3/uL (0.0-0.012); NRBC Pct Auto 0.0 /100WBC (0.0-0.2); Platelet Count 135 X10*3/uL (160-400); Red Blood Count 4.74 X10*6/uL (4.60-5.80); White Blood Count 5.6 X10*3/uL (4.8-10.8)
[2025-07-26 07:53] LABS: Alanine Aminotransferase 22 U/L (0-40); Albumin Level 4.5 g/dL (3.5-5.0); Alkaline Phosphatase 60 U/L (39-117); Anion Gap 9 (12-20); Aspartate Amino Transferase 36 U/L (5-37); Blood Urea Nitrogen 25 mg/dL (9-16); Calcium 9.4 mg/dL (8.4-10.2); Carbon Dioxide 32 mmol/L (22-29); Chloride 105 mmol/L (96-108); Cholesterol 117 mg/dL (<200); Estimated Glomerular Filt Rate > 60; HDL Cholesterol 65 mg/dL (>40); Potassium 4.6 mmol/L (3.3-5.1); Sodium 141 mmol/L (135-145); Total Protein 6.7 g/dL (6.5-8.0); Triglycerides 44 mg/dL (<150)
[2025-07-26 08:04] LABS: Microalbum/Creatinine Ratio Ur 3.6 ug/mg cr (<30)
== END 2025-07-26 06:11 | disposition home or self-care (01) ==
LOC: HO.LAB 06:10
PROVIDERS: PCP Family Medicine; Visit Provider Family Medicine
DX: Z00.00 Encounter for general adult medical examination without abnormal findings (principal); I10 Essential (primary) hypertension; R73.01 Impaired fasting glucose; Z12.5 Encounter for screening for malignant neoplasm of prostate
CPT/HCPCS: 36415; 80053; 80061; 81003; 82043; 82570; 83036; 84153; 84443; 85025

== ENCOUNTER 2025-08-03 08:48 | Outpatient (AMB) | payer MEDICARE, BC, SELFPAY ==
--- NOTE | 2025-08-03 09:06 | A.OFFPC_ITS ---
Vital Signs 08/03/25 09:11 Height 5 ft 10 in Weight 180 lb 2 oz BMI 25.8 BP 114/60 Blood Pressure Location Rt brachial Position Sitting Respiration 13 Pulse 46 L Pulse Source Pulse Oximeter Temp 97.4 F Temp Source Temporal Artery Scan Pulse Oximetry (%) 97 Oxygen Delivery Method Room Air Intake Visit Reasons: Extended Exam f/u labs and health maint. Intake Note: Sky presents in the office today for a follow up to his lab results and health maintenance. Allergies No Known Allergies (No Known Allergies*) Allergy (Verified 08/31/24 11:59) bee stings Allergy (Intermediate, Uncoded 08/03/25 09:09) swelling Medication List - Last Reconciled 08/03/25 by Amado Carrillo MD aspirin (Adult Aspirin Regimen) 81 mg PO DAILY atorvastatin 40 mg PO DAILY epinephrine (EpiPen 2-Bandar) 0.3 mg (0.3 mL) IM Q10M PRN ezetimibe 10 mg PO DAILY fluticasone propionate 50 mcg/actuation (Flonase Allergy Relief) 1 spray intranasal Q12H 30 days hydrochlorothiazide 6.25 mg (1/2 x 12.5 mg) PO BID 90 days irbesartan 150 mg PO DAILY 90 days omeprazole 20 mg PO DAILY 90 days sildenafil 100 mg PO DAILY PRN 30 days Tobacco use date assessed: 08/03/25 Fall risk assessment: No Falls in past year Last assessed Fall Risk: 08/03/25 Dental Screening Dental Screen Date: 08/03/25 Did you have a dental visit in the last 12 months?: Yes Did you have a dental problem in the last 6 months where you did not have access to dental care?: No Was dental information given to patient?: Patient has dentist HPI Extended Exam f/u labs and health maint. HPI Details 75 y/o male presents for an extended exa m with f/u labs and health maint. Labs drawn 07/26/25. Reviewed labs with pt. A1c 6.2%. Fasting glucose 126. Triglycerides 44. TC 117. LDL 44. HDL 65. He is on artovastatin 40mg daily, ezetimibe 10mg daily. PSA 0.85. TSH 2.42. Blood pressure today 114/60, 46p. He is on irbesartan 150mg, HCTZ 6.25mg b.i.d. HPI Comments History of Present Illness Details Documentation assistance for Amado Carrillo MD, was provided by Evelio Kelly,? Commercial Loan Specialist on 08/03/2025 at 9:35 AM NEHAL. I, Dr. Carrillo, have read, observed, and verified documentation. ?? [facility] Medical History Sinus bradycardia Arthritis History of heartburn Elevated cholesterol CAD (coronary artery disease) Diet-controlled type 2 diabetes mellitus Myocardial infarction HTN (hypertension) Surgical History Stented coronary artery History of breast lump/mass excision Hx of tonsillectomy History of bilateral cataract extraction Hx of colonoscopy Family History (Reviewed 08/03/25 @ 09:11 by Yadi Baltazar [facility]) Father CAD (coronary artery disease) Myocardial infarction Diabetes mellitus Mother Diabetes mellitus COPD (chronic obstructive pulmonary disease) Brother Alcoholism Substance abuse Son No problems noted. Son Lyme disease Social History (Updated 08/03/25 @ 09:11 by Yadi Baltazar CMA) Household Members: Spouse Both parents involved: No Caregiver staying overnight: No Housing: House Are you a primary adult daycare coordinator to a significant other at home: No Do you presently have visiting nurse or other home services: No 75 years or older and lives alone: No Alcohol intake: current Alcohol intake frequency: holidays/special occasions only Alcohol type: beer Patient Tobacco Use Status: Former Tobacco user Tobacco use type: Cigarette e-Cigarette/Vaping Use: Never Used Second Hand Smoke Exposure: No service: No Current occupational status: retired Current occupational exposures/hazards: No Sexual orientation: Straight/Heterosexual Gender identity: Male Cognitive needs: No Hearing needs: Yes Vision needs: No Questionnaire Thrive Questionnaire Date Thrive assessed: 11/26/24 I am a: Patient What is your living situation today?: I have a steady place to live Within the past 12 months, did the food you bought not last and you didn't have the money to get more?: Never true Within the past 12 months, did you worry whether your food would run out before you got money to buy more?: Never true Do you have trouble paying for medicines?: No Do you have trouble getting transportation to medical appointments?: No Do you have trouble paying your heating and electricity bill?: No Do you have trouble taking care of your child, family member or friend?: No Do you have trouble with day-to-day activities such as bathing, preparing meals, shopping, managing finances, etc.?: No Are you currently unemployed and looking for a job?: No Are you interested in more education?: No Please select the resources that you would like help with: None Currently or been in a relationship where the following occur: No concerns repo rted THRIVE Score: 0 GERRI-7 AMB Questionnaire GERRI-7 Date GERRI - 7 assessed: 12/02/23 Source: Developed by Drs. Richie Mead, Rizwana Sifuentes, Stanley Manrique and colleagues, with an educational jocelyn from [employer]. Review of Systems Const Denies chills, Denies fatigue, Denies fever(s), Denies headache(s) and Denies weakness Eyes Denies change in vision ENT Denies dizziness, Denies headache(s), Denies hearing loss, Denies nasal congestion, Denies sinus pain, Denies sinus pressure and Denies sore throat Card Denies chest pain, Denies lightheadedness, Denies dyspnea and Denies other (palpitations) Resp Denies cough, Denies dyspnea and Denies wheezing GI Denies abdominal pain, Denies melena, Denies hematochezia, Denies change in bowel habits, Denies dyspepsia and Denies nausea Denies hematuria and Denies dysuria Musc Denies abnormal gait, Denies myalgias, Denies arthralgias, Denies numbness and Denies tingling Skin/Breast Denies rash, Denies unusual bruising and Denies wounds Neuro Denies abnormal gait, Denies dizziness, Denies headache(s), Denies memory loss, Denies numbness, Denies Sensory deficit (Neuro), Denies tingling and Denies weakness Psych Denies anxiety, Denies depression and Denies memory loss Endo Denies cold intolerance, Denies fatigue, Denies heat intolerance, Denies polydipsia and Denies polyuria Wale/Lymph Denies easy bleeding and Denies easy bruising Aller/Immun Denies wheezing Physical exam (Primary Care) Vital Signs: Last Vital Signs Temp 97.4 F 08/03/25 09:11 Pulse 46 L 08/03/25 09:11 Resp 13 08/03/25 09:11 BP 114/60 08/03/25 09:11 Pulse Ox 97 08/03/25 09:11 Oxygen Delivery Method Room Air 08/03/25 09:11 BMI result Body Mass Index 25.8 Tobacco/Smoking Status: Tobacco use Status Tobacco use date assessed 08/03/25 08/03/25 09:14 Patient Tobacco Use Status Former Tobacco user 08/03/25 09:11 Tobacco use type Cigarette 08/03/25 09:11 e-Cigarette/Vaping Use Never Used 08/03/25 09:11 Thrive Assessment: Date of Thrive Assessment Date Thrive assessed 11/26/24 08/03/25 09:08 Currently or been in a relationship where the following occur: No concerns reported Const General: no acute distress, well developed, alert and awake Nutritional Appearance: well nourished Orientation/consciousness: patient oriented x3 HENMT Head: Yes normocephalic and Yes atraumatic Ears: hearing grossly normal bilaterally and TM's normal bilaterally General nose exam: Normal external nose present and Normal nares present Mouth: Normal oral and palatal mucosa present and moist mucous membranes Teeth and gingiva: dentition normal Throat: Yes posterior oropharynx normal Eyes General: appearance normal, both eyes and all related structures Pupils: Equal, round and reactive pupils present and Pupil accommodation reflex normal EOM: EOMs intact bilaterally Neck Neck: Yes normal visual inspection, Yes no lymphadenopathy and Yes trachea midline Thyroid: Thyroid normal Carotids: no bruits Lymphatic: no lymphadenopathy noted Chest Chest palpation & inspection: normal inspection of the chest Resp Effort & Inspection: normal respiratory effort Auscultation: clear to auscultation bilaterally Cardio Rate: regular rate Rhythm: regular rhythm Heart sounds: S1 normal heart sound present, S2 normal heart sound present, no gallops, no murmurs and no rubs Bruits: no abdominal aortic bruits and no carotid bruits GI Palpation (GI): No Abdominal aortic bruit present, Soft to palpation, nontender, No hepatosplenomegaly present and No Rebound tenderness present Auscultation: normal bowel sounds General: Yes no CVA tenderness Back/Spine/Pelvis Back: no CVA tenderness Cervical Spine: cervical ROM normal and No Cervical spine tenderness Thoracic/Lumbar Spine: thoraco-lumbar ROM normal, No pain with thoraco-lumbar ROM, No thoracic spinal tenderness and No lumbar spinal tenderness Skin Lesions: no lesions Rashes: no rashes Trauma: no lacerations or abrasions Wounds: no wounds Nails: normal Neuro General: patient oriented x3 Cranial nerves: Yes Equal, round and reactive pupils present Cognition (Neuro): normal cognition Gait exam (Neuro): Normal gait present Motor exam (neuro): 5/5 motor strength present throughout Sensory Exam: No Sensory deficit (Neuro) Deep tendon reflexes (DTR's): Right patellar reflex intensity grade: 2+ and Left patellar reflex intensity grade: 2+ Extrem General: Yes normal to inspection and No edema Psych Appearance: grossly normal Affect: normal affect Attitude: cooperative Thought process: Normal thought process present Coding Level of Care Code Est Pt Level 4 (15415) Diagnoses Essential hypertension I10 CAD (coronary artery disease) I25.10 Pre-diabetes R73.03 Hyperlipidemia E78.5 Screening for prostate cancer Z12.5 Screening for colon cancer Z12.11 Annual physical exam Z00.00 Assessment & Plan Assessment & Plan (1) Essential hypertension: Code(s): I10 - Essential (primary) hypertension Category: Medical Plan: BP controlled. Goal is less than 130/80 Continue current medication (2) CAD (coronary artery disease): Comment: Sees Dr Callahan Code(s): I25.10 - Atherosclerotic heart disease of [place] coronary artery without angina pectoris Category: Medical Plan: Stable (3) Pre-diabetes: Code(s): R73.03 - Prediabetes Category: Medical Plan: A1c has crept up further Encouraged a diet low in sugars and starches (4) Hyperlipidemia: Code(s): E78.5 - Hyperlipidemia, unspecified Category: Medical Plan: Lipid panel all within normal range on atorvastatin 40 mg daily And Zetia Continue current medications (5) Screening for prostate cancer: Code(s): Z12.5 - Encounter for screening for malignant neoplasm of prostate Category: Medical Plan: PSA is within normal range Will continue annual screening (6) Screening for colon cancer: Code(s): Z12.11 - Encounter for screening for malignant neoplasm of colon Category: Medical Plan: Referred back to Dr Romano for 5 yr f/u in Sep 2025 (7) Annual physical exam: Code(s): Z00.00 - Encounter for general adult medical examination without abnormal findings Category: Medical Plan: 75-year-old male presents for an extended exam Encouraged healthy diet with active lifestyle and plenty of exercise Orders: Referrals Gastroenterology Referral Z12.11 - Encounter for screening for malignant neoplasm of colon
[2025-08-03 09:11] VITALS: BP 114/60; PULSE 46; RESP 13; TEMP 36.3; O2SAT 97; BMI 25.8
== END 2025-08-03 09:46 | disposition home or self-care (01) ==
LOC: HO.HMCFM 08:49
PROVIDERS: PCP Family Medicine; Visit Provider Family Medicine
DX: I10 Essential (primary) hypertension (principal); I25.10 Atherosclerotic heart disease of native coronary artery without angina pectoris; R73.03 Prediabetes; E78.5 Hyperlipidemia, unspecified; Z12.5 Encounter for screening for malignant neoplasm of prostate; Z12.11 Encounter for screening for malignant neoplasm of colon; Z00.00 Encounter for general adult medical examination without abnormal findings

== ENCOUNTER → 2025-08-03 08:48 | Outpatient (BNVA) | payer MEDICARE, BC, SELFPAY | PROVIDERS: PCP Family Medicine; Visit Provider Family Medicine | DX: Z00.00 Encounter for general adult medical examination without abnormal findings (principal); I10 Essential (primary) hypertension; I25.10 Atherosclerotic heart disease of native coronary artery without angina pectoris; R73.03 Prediabetes; E78.5 Hyperlipidemia, unspecified | CPT/HCPCS: 99212 ==